=== PATIENT | male | born 1955 | race Caucasian/White ===

== ENCOUNTER → 2017-05-02 15:41 | Outpatient (CLI) | payer MEDICAID, SELFPAY ==
--- NOTE | 2017-05-02 15:47 | RAD_ITS ---
STUDY: X-RAY CHEST REASON FOR EXAM: Male, 61 years old. Left lower lobe rales TECHNIQUE: PA and lateral views of the chest. COMPARISON: 06/02/2015 FINDINGS: There is hyperinflation of the lungs consistent with chronic obstructive lung disease (COPD). Lungs are clear. There is no demonstrated pleural abnormality. Sternal cerclage wires and vascular clips are present from a prior sternotomy and coronary artery bypass graft procedure (CABG). Mild cardiomegaly. Normal mediastinum and juan. Normal visualized pulmonary arteries. Normal visualized aortic arch and descending thoracic aorta. Normal visualized thoracic spine. Normal visualized ribs, clavicles, and shoulders. There is no demonstrated abnormality of the visualized soft tissue structures of the upper abdomen. RAD/Chest PA and Lateral IMPRESSION: No acute findings Electronically Signed: Eitan Salinas DO at 16:13 EST Tel , Service support ,
[2017-05-02 18:33] LABS: Absolute Lymphocyte Count 2.21 X10^3/ul (0.83-4.51); Absolute Neutrophil Count 5.2 X10^3/uL (2.0-7.7); Basophil# 0.02 X10^3/uL; Basophil% 0.2 % (0-1); Eosinophil# 0.42 X10^3/uL; Eosinophils% 4.7 % (0-5); Hematocrit 43.5 % (40-54); Hemoglobin 14.4 g/dl (13.0-16.5); Lymphocyte # 2.21 X10^3/ul (4.0); Lymphocyte % 24.8 % (19-41); Mean Corp Hgb Conc 33.1 g/gl (32-36); Mean Corpuscular Hgb 31.4 pg (27.0-32.0); Mean Corpuscular Volume 94.8 fL (80-94); Mean Platelet Vol. 10.5 fl (6.2-12.0); Monocyte# 0.93 X10^3/uL; Monocyte% 10.4 % (0-10); Neutrophil # 5.22 X10^3/uL (2.7-7.7); Neutrophil % 58.7 % (47-70); Platelet Count 352 K/mm3 (150-450); RBC Distribution Width CV 13.6 % (11.6-14.6); RBC Distribution Width SD 44.6 fl (35.1-43.9); Red Blood Count 4.59 M/mm3 (4.6-6.2); White Blood Count 8.9 K/mm3 (4.4-11.0)
[2017-05-02 18:54] LABS: POSITIVE COUNT NO; POSITIVE DIFFERENTIAL NO; POSITIVE MORPHOLOGY NO
[2017-05-02 19:12] LABS: ALB/GLOB Ratio 0.9 RATIO (0.9-2.4); AST(SGOT) 18 U/L (15-37); Alanine Aminotransfer ALT/SGPT 36 U/L (16-61); Albumin, Serum 3.3 g/dL (3.2-5.0); Alkaline Phosphatase 92 U/L (45-117); BUN 20 mg/dL (7-18); Calcium,Total 8.3 mg/dL (8.5-10.1); Creatinine, Serum 0.95 mg/dL (0.70-1.30); EST Glomerular Filtration Rate 85 mL/min (>60); Est Glom Filt Rate - Afr Amer 102 mL/min (>60); Globulin 3.8 g/dL (2.2-4.2); Glucose 97 mg/dL (74-106); Protein, Total 7.1 g/dL (6.4-8.2); Sodium Level 140 mmol/L (136-145)
[2017-05-02 19:13] LABS: Anion Gap 6 (5-15); CRP < 2.90 mg/L (0.0-3.0); Chloride 103 mmol/L (98-107); LDH 226 U/L (87-241); Potassium 4.1 mmol/L (3.5-5.1)
== END ==
PROVIDERS: Family Provider Family Medicine; PCP Family Medicine; Visit Provider Family Medicine
DX: J18.1 Lobar pneumonia, unspecified organism (principal)
CPT/HCPCS: 36415; 71046; 80053; 83615; 85025; 86140

== ENCOUNTER → 2017-08-10 15:11 | Outpatient (CLI) | payer MEDICAID, SELFPAY ==
--- NOTE | 2017-08-10 15:14 | RAD_ITS ---
STUDY: X-RAY CHEST REASON FOR EXAM: Male, 62 years old. Rales TECHNIQUE: PA and lateral chest COMPARISON: 05/02/2017 FINDINGS: Median sternotomy. Cholecystectomy. Clear lungs. No convincing evidence of infiltrate, atelectasis, effusion or pneumothorax. Normal cardiomediastinal silhouette, juan and pleural margins. No acute osseous or upper abdominal process. Mild scoliosis. RAD/Chest PA and Lateral IMPRESSION: No acute cardiopulmonary process. Electronically Signed: Alex Bliss, at 15:40 EDT Tel , Service support ,
--- NOTE | 2017-08-10 15:14 | RAD_ITS ---
STUDY: X-RAY - ABDOMEN/PELVIS REASON FOR EXAM: Male, 62 years old. Diarrhea TECHNIQUE: KUB COMPARISON: None. FINDINGS: Scattered gas in the large bowel, unremarkable pattern. No significant stool burden. Minimal gas in the small bowel, unremarkable pattern. No evidence of free air. Cholecystectomy. Grossly normal size and position of the solid organs. Old wedge compression fracture of L1. Upper lumbar scoliosis. Stable. RAD/Abd Inc Decub and/or Erect IMPRESSION: No acute intra-abdominal process is evident. Electronically Signed: Alex Bliss, at 15:39 EDT Tel , Service support ,
== END ==
PROVIDERS: Family Provider Family Medicine; PCP Family Medicine; Visit Provider Family Medicine
DX: R09.89 Other specified symptoms and signs involving the circulatory and respiratory systems (principal); R19.7 Diarrhea, unspecified
CPT/HCPCS: 71046; 74019

== ENCOUNTER → 2018-04-06 17:08 | Outpatient (CLI) | payer MEDICAID, SELFPAY ==
[2016-12-27 20:55] VITALS: BMI 34.0
--- NOTE | 2018-04-06 17:12 | RAD_ITS ---
STUDY: X-RAY CHEST REASON FOR EXAM: Male, 62 years old. Rales in both lungs TECHNIQUE: 2 views COMPARISON: None. FINDINGS: The lungs are clear and expanded. There is no demonstrated pleural abnormality. Median sternotomy wires are in place Normal size heart. Normal mediastinum and juan. Normal visualized pulmonary arteries. Normal visualized aortic arch and descending thoracic aorta. 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 RAD/Chest PA and Lateral IMPRESSION: No acute findings in the lungs. 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
--- OUTSIDE RECORDS SUMMARY | 2018-06-11 12:16 | XMS RPT_ITS ---
:1955 Author Organization [facility] Care Team Providers Name Role Phone Emerson Jara Attending Unavailable Jara, Emerson Referring Unavailable Jara, Emerson Primary Care Unavailable Jara, Emerson Attending Unavailable Jara, Emerson Referring Unavailable Jara, Emerson Primary Care Unavailable Jara, Emerson Attending Unavailable Jara, Emerson Referring Unavailable Jara, Emerson Primary Care Unavailable PROBLEMS PROBLEMS DATE TYPE CONDITION / CODE ATTENDING STATUS SOURCE 08/10/2017 Unknown R19.7 - Diarrhea, Jara, Emerson Active [facility] unspecified / Community R19.7(ICD-10) Hospital Repository 08/10/2017 Unknown R09.89 - Other Jara, Emerson Active [facility] specified Community symptoms and Hospital signs involving Repository the circulatory and respiratory systems / R09.89(ICD-10) 05/02/2017 Unknown J18.1 - Lobar Jara, Emerson Active [facility] pneumonia, Community unspecified Hospital organism / Repository J18.1(ICD-10) PROCEDURES PROCEDURES No Procedure Records FoundRESULTS RESULTS CHEST PA AND LATERAL Observed: 04/06/2018 Status: F Source: [place] 5:12 PM [facility] Imaging Services [address] [place] [address] Chest PA and Lateral MR#: [id number] Acct: [id number] Name: YURI RANDALL Rep #: [id number] : 1955 M 62 From: Vinay Anguiano MD PCP: Emerson Jara MD Status: REG CLI Study: Chest PA and Lateral Date of Exam: 04/06/18 Exam# [id number] Ordering Dr: Emerson Jara MD STUDY: X-RAY CHEST REASON FOR EXAM: Male, 62 years old. Rales in both lungs TECHNIQUE: 2 views COMPARISON: None. FINDINGS: The lungs are clear and expanded. There is no demonstrated pleural abnormality. Median sternotomy wires are in place Normal size heart. Normal mediastinum and juan. Normal visualized pulmonary arteries. Normal visualized aortic arch and descending thoracic aorta. 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 RAD/Chest PA and Lateral IMPRESSION: No acute findings in the lungs. 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 CC: Emerson Jara MD Cadd Operator: Signed ABD INC DECUB Observed: 08/10/2017 Status: F Source: [place] AND/OR ERECT 3:14 PM [facility] REPOSITORY [facility] Imaging Services [address] [place] [address] Abd Inc Decub and/or Erect MR#: [id number] Acct: [id number] Name: PRAKASHYURI Hermelinda Rep #: [id number] : 1955 M 62 From: Alex Bliss MD PCP: Emerson Jara MD Status: REG CLI Study: Abd Inc Decub and/or Erect Date of Exam: 08/10/17 Exam# [id number] Ordering Dr: Emerson Jara MD STUDY: X-RAY - ABDOMEN/PELVIS REASON FOR EXAM: Male, 62 years old. Diarrhea TECHNIQUE: KUB COMPARISON: None. FINDINGS: Scattered gas in the large bowel, unremarkable pattern. No significant stool burden. Minimal gas in the small bowel, unremarkable pattern. No evidence of free air. Cholecystectomy. Grossly normal size and position of the solid organs. Old wedge compression fracture of L1. Upper lumbar scoliosis. Stable. RAD/Abd Inc Decub and/or Erect IMPRESSION: No acute intra-abdominal process is evident. Electronically Signed: Alex Bliss, at 15:39 EDT Tel , Service support , CC: Emerson Jara MD Cadd Operator: Signed CHEST PA AND LATERAL Observed: 08/10/2017 Status: F Source: [place] 3:14 PM [facility] REPOSITORY [facility] Imaging Services [address] [place] [address] Chest PA and Lateral MR#: [id number] Acct: [id number] Name: YURI RANDALL Rep #: [id number] : 1955 M 62 From: Alex Bliss MD PCP: Emerson Jara MD Status: REG CLI Study: Chest PA and Lateral Date of Exam: 08/10/17 Exam# [id number] Ordering Dr: Emerson Jara MD STUDY: X-RAY CHEST REASON FOR EXAM: Male, 62 years old. Rales TECHNIQUE: PA and lateral chest COMPARISON: 05/02/2017 FINDINGS: Median sternotomy. Cholecystectomy. Clear lungs. No convincing evidence of infiltrate, atelectasis, effusion or pneumothorax. Normal cardiomediastinal silhouette, juan and pleural margins. No acute osseous or upper abdominal process. Mild scoliosis. RAD/Chest PA and Lateral IMPRESSION: No acute cardiopulmonary process. Electronically Signed: Alex Bliss, at 15:40 EDT Tel , Service support , CC: Emerson Jara MD Cadd Operator: Signed CBC W/DIFF, AUTOMATED Collected: 05/02/2017 Status: F Source: [place] 3:49 PM [facility] REPOSITORY TYPE CODE TESTS RESULT OUT OF RANGE REFERENCE UNITS LAB L100.1000 4.4-11.0 K/mm3 Normal WBC 8.9 LAB L100.1200 4.6-6.2 M/mm3 Low RBC 4.59 LAB L100.1300 13.0-16.5 g/dl Normal HGB 14.4 LAB L100.1400 40-54 % Normal HCT 43.5 LAB L100.1500 80-94 fL High MCV 94.8 LAB L100.1600 27.0-32.0 pg Normal MCH 31.4 LAB L100.1700 32-36 g/gl Normal MCHC 33.1 LAB L100.1810 11.6-14.6 % Normal RDW CV 13.6 LAB L100.1820 35.1-43.9 fl High RDW SD 44.6 LAB L100.1900 150-450 K/mm3 Normal PLT 352 LAB L100.2000 6.2-12.0 fl Normal MPV 10.5 LAB L100.2100 47-70 % Normal NEUT% 58.7 LAB L100.2200 19-41 % Normal LY% 24.8 LAB L100.2300 0-10 % High MONO% 10.4 LAB L100.2400 0-5 % Normal EO% 4.7 LAB L100.2500 0-1 % Normal BASO% 0.2 LAB L100.2550 0.0-0.9 % High IM GRAN % 1.200 Result Comment: IG% - Immature Granulocytes (promyelocytes, myelocytes and metamyelocytes) > 1% indicates that a LEFT SHIFT is Present. LAB L100.2620 2.0-7.7 X10 3/uL Normal Absolute Neut 5.2 LAB L100.2720 0.83-4.51 X10 3/ul Normal Absolute Lymph 2.21 Performed By: #### L100.0100 #### [facility] [address] [place], [place], [address] COMPREHENSIVE METABOLIC Collected: 05/02/2017 Status: F Source: [place] 3:49 PM [facility] REPOSITORY Order Comment: Serial Specimen #1, #2 or #3? 1 TYPE CODE TESTS RESULT OUT OF RANGE REFERENCE UNITS LAB L501.0100 74-106 mg/dL Normal GLU 97 Result Comment: Please note revised GLUCOSE reference range effective 2017. LAB L501.1000 7-18 mg/dL High BUN 20 LAB L501.1100 0.70-1.30 mg/dL Normal CREAT,SERUM 0.95 Result Comment: The validity of the calculated GFR AND GFRAA in patients over 70 years has not been determined. Clinical correlation is essential. LAB L501.1110 >60 mL/min Normal EST GFR 85 Result Comment: Non- GFR Calc LAB L501.1115 >60 mL/min Normal EST GFR - AA 102 Result Comment: GFR Calc LAB L501.1300 10-20 RATIO High BUN/CRE 21.0 LAB L501.1500 6.4-8.2 g/dL T Normal PROT 7.1 LAB L501.1800 3.2-5.0 g/dL Normal ALB 3.3 LAB L501.1950 2.2-4.2 g/dL Normal GLOB 3.8 LAB L501.2000 0.9-2.4 RATIO Normal A/G 0.9 LAB L501.2200 8.5-10.1 mg/dL Low CA 8.3 LAB L501.4100 15-37 U/L Normal AST 18 LAB L501.4305 45-117 U/L Normal ALK P 92 LAB L501.4405 16-61 U/L Normal ALT 36 Result Comment: Please note revised ALT reference range effective 2017. LAB L501.4600 0.20-1.00 mg/dL Normal T BILI 0.30 LAB L501.5300 136-145 mmol/L Normal NA 140 LAB L501.5600 3.5-5.1 mmol/L Normal K 4.1 LAB L501.5900 98-107 mmol/L Normal CL 103 LAB L501.6100 21.0-32.0 mmol/L Normal CO2 31.0 LAB L501.6200 5-15 Normal GAP 6 Performed By: #### L500.4050, L501.6710, L504.2610 #### [facility] [address] [facility] [place], [address] CRP Collected: 05/02/2017 Status: F Source: [place] 3:49 PM [facility] REPOSITORY Order Comment: Serial Specimen #1, #2 or #3? 1 TYPE CODE TESTS RESULT OUT OF RANGE REFERENCE UNITS LAB L501.6710 0.0-3.0 mg/L Normal < 2.90 C-REACTIVE PROT Result Comment: C-Reactive Protein (CRP) provides useful information for the diagnosis, therapy and monitoring of inflammatory processes and associated diseases. For the evaluation of Relative Risk for Cardiovascular Disease, a High Sensitivity CRP (HSCRP) should be ordered. Performed By: #### L500.4050, L501.6710, L504.2610 #### [facility] [address] [facility] [place], [address] LDH Collected: 05/02/2017 Status: F Source: [place] 3:49 PM [facility] REPOSITORY Order Comment: Serial Specimen #1, #2 or #3? 1 TYPE CODE TESTS RESULT OUT OF RANGE REFERENCE UNITS LAB L504.2610 87-241 U/L Normal LDH 226 Performed By: #### L500.4050, L501.6710, L504.2610 #### [facility] [address] [place], [address] CHEST PA AND LATERAL Observed: 05/02/2017 Status: F Source: [place] 3:47 PM [facility] REPOSITORY [facility] Imaging Services [address] [place] [address] Chest PA and Lateral MR#: [id number] Acct: [id number] Name: YURI RANDALL Rep #: [id number] : 1955 M 61 From: Eitan Salinas DO PCP: Marek RATLIFF,Emerson Status: REG CLI Study: Chest PA and Lateral Date of Exam: 05/02/17 Exam# [id number] Ordering Dr: Emerson Jara MD STUDY: X-RAY CHEST REASON FOR EXAM: Male, 61 years old. Left lower lobe rales TECHNIQUE: PA and lateral views of the chest. COMPARISON: 06/02/2015 FINDINGS: There is hyperinflation of the lungs consistent with chronic obstructive lung disease (COPD). Lungs are clear. There is no demonstrated pleural abnormality. Sternal cerclage wires and vascular clips are present from a prior sternotomy and coronary artery bypass graft procedure (CABG). Mild cardiomegaly. Normal mediastinum and juan. Normal visualized pulmonary arteries. Normal visualized aortic arch and descending thoracic aorta. Normal visualized thoracic spine. Normal visualized ribs, clavicles, and shoulders. There is no demonstrated abnormality of the visualized soft tissue structures of the upper abdomen. RAD/Chest PA and Lateral IMPRESSION: No acute findings Electronically Signed: Eitan Salinas DO at 16:13 EST Tel , Service support , CC: Emerson Jara MD Cadd Operator: Signed ALLERGIES ALLERGIES DATE TYPE / CODE NAME / CODE REACTION SEVERITY SOURCE 06/02/2015 Drug venom-honey Anaphylaxis Unknown [facility] Allergy/4160 bee/[id number] Hospital 49416(SNOMED 698(RXNORM) Repository CT) ENCOUNTERS ENCOUNTERS ADMIT/DISCHARGE ACCOUNT ADMITTING ENCOUNTER LOCATION SOURCE NUMBER CLASS 04/06/2018 [id number] Ambulatory Madhuri Madhuri [address] [facility] ing:MTRAD Repository 08/10/2017 [id number] Ambulatory Madhuri Madhuri [address] [facility] ing:MTRAD Repository 05/02/2017 [id number] Ambulatory [place] [address] [facility] ing:MTRAD Repository PAYERS PAYERS ENCOUNTER GUARANTOR PAYER SUBSCRIBER SOURCE 04/06/2018 YURI [address] Insurance:CARESOURCEP WILSONDOB: [address] Number: [id number] [id number] Repository [address]Kpn: (234) Date:2018-04-06P O [phone] (HP) [address]ATTN: [place] [address]EI: 04/06/2018 Secondary NOT GIVENUNK Madhuri Insurance:SELF PAY [facility] Number: Effective Repository Date:2018-04-06 08/10/2017 Yuri L Primary Yuri L [id number] Insurance:CARESOEILEEN GarsiaB[facility] Number: [id number] [address]Pza: [id number] Repository Date:2017-08-10P O (HP) [address]ATTN: [place] [address]UV: 08/10/2017 Secondary NOT GIVENUNK [place] Insurance:SELF PAY [facility] Number: Effective Repository Date:2017-08-10 05/02/2017 Yuri L Primary Yuri L [place] [id number] Insurance:JIM GarsiaB: [facility] Number: [id number] [address]Jeb: [id number] Repository Date:2017-05-02 O (HP) [address]ATTN: [place] [address]JN: 05/02/2017 Secondary NOT GIVENUNK Madhuri Insurance:SELF PAY [facility] Number: Effective Repository Date:2017-05-02
== END ==
PROVIDERS: Family Provider Family Medicine; PCP Family Medicine; Referring Provider Family Medicine; Visit Provider Family Medicine
DX: R09.89 Other specified symptoms and signs involving the circulatory and respiratory systems (principal)
CPT/HCPCS: 71046

== ENCOUNTER 2018-07-12 18:21 | Emergency (ER) | payer MEDICAID, SELFPAY ==
[2018-07-12 18:23] VITALS: BP 169/100; PULSE 91; RESP 16; TEMP 36.9; O2SAT 97; BMI 33.5
[2018-07-12 18:36] LABS: Bedside Glucose 101 mg/dL (70-110)
--- NOTE | 2018-07-12 18:38 | EKG12_ITS ---
Test Reason : DIZZY Blood Pressure : / mmHG Vent. Rate : 090 BPM Atrial Rate : 090 BPM P-R Int : 154 ms QRS Dur : 086 ms QT Int : 368 ms P-R-T Axes : 065 085 058 degrees QTc Int : 450 ms Normal sinus rhythm Possible Left atrial enlargement Low voltage QRS Borderline ECG Confirmed by CARLOS RATLIFF, CORTEZ ([id number]), assistant film editor MATT SERRANO ([id number]) on 07/17/2018 10:55:09 AM Referred By: MR Confirmed By:CORTEZ GONZALEZ MD
--- NOTE | 2018-07-12 18:38 | CT_ITS ---
STUDY: CT BRAIN WITHOUT CONTRAST REASON FOR EXAM: Male, 63 years old. Altered mental status RADIATION DOSAGE (If Supplied By Facility): CTDIvol = ( 44.99 ) mGy, DLP = ( 779.24 ) mGycm TECHNIQUE: Transaxial CT imaging of the brain was performed without administration of intravenous contrast material. Individualized dose optimization techniques were used for this CT. COMPARISON: December 27, 2016 FINDINGS: Normal soft tissue structures. Normal calvarium. Moderate atrophy and periventricular white matter ischemic changes. There is old infarct in the right frontal parietal region.. Normal basal ganglia and thalami. Normal brainstem. Normal cerebellum. There is no intracranial hemorrhage. There are no findings of an acute ischemic infarction. Normal visualized paranasal sinuses. CT/Brain/Head without Contrast IMPRESSION: Moderate atrophy and periventricular white matter ischemic changes. 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 No evidence for acute bleed. If concern for acute infarct MRI recommended Electronically Signed: Eran Franz MD at 19:38 EDT , Service support ,
--- NOTE | 2018-07-12 18:38 | RAD_ITS ---
STUDY: X-RAY CHEST REASON FOR EXAM: Male, 63 years old. Cough and shortness of breath TECHNIQUE: AP portable COMPARISON: April 06, 2018. FINDINGS: There is focal infiltrate in the right lower lobe.. There is no demonstrated pleural abnormality. Heart is enlarged. Normal mediastinum and juan. Normal visualized pulmonary arteries. Normal visualized aortic arch and descending thoracic aorta. Postop change status post median sternotomy Normal visualized thoracic spine. Normal visualized ribs, clavicles, and shoulders. There is no demonstrated abnormality of the visualized soft tissue structures of the upper abdomen. RAD/Chest 1 View (Portable) IMPRESSION: Right lower lobe infiltrate possibly pneumonia. Clinical correlation recommended Electronically Signed: Eran Franz MD at 18:58 EDT , Service support ,
--- NOTE | 2018-07-12 18:39 | ED.RN ---
PT GIVES THIS RN VERBAL PERMISSION TO CONTACT BROTHER VINNIE REGARDING CARE. PT LIVES WITH HIS BROTHER CURRENTLY.
[2018-07-12 19:21] LABS: Absolute Lymphocyte Count 1.42 X10^3/ul (0.83-4.51); Absolute Neutrophil Count 6.6 X10^3/uL (2.0-7.7); Eosinophil# 0.22 X10^3/uL; Eosinophils% 2.4 % (0-5); Hematocrit 43.8 % (40-54); Hemoglobin 14.5 g/dl (13.0-16.5); Lymphocyte # 1.42 X10^3/ul (4.0); Lymphocyte % 15.6 % (19-41); Mean Corp Hgb Conc 33.1 g/gl (32-36); Mean Corpuscular Hgb 31.2 pg (27.0-32.0); Mean Corpuscular Volume 94.2 fL (80-94); Mean Platelet Vol. 10.2 fl (6.2-12.0); Monocyte# 0.86 X10^3/uL; Monocyte% 9.5 % (0-10); Neutrophil # 6.58 X10^3/uL (2.7-7.7); Neutrophil % 72.3 % (47-70); Platelet Count 299 K/mm3 (150-450); RBC Distribution Width CV 13.6 % (11.6-14.6); RBC Distribution Width SD 46.3 fl (35.1-43.9); Red Blood Count 4.65 M/mm3 (4.6-6.2); White Blood Count 9.1 K/mm3 (4.4-11.0)
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
[2018-07-12 19:27] LABS: Anion Gap 3 (5-15); BUN 19 mg/dL (7-18); BUN/Creat Ratio 20.5 RATIO (10-20); Calcium,Total 8.8 mg/dL (8.5-10.1); Chloride 109 mmol/L (98-107); Creatinine, Serum 0.93 mg/dL (0.70-1.30); EST Glomerular Filtration Rate 87 mL/min (>60); Est Glom Filt Rate - Afr Amer 105 mL/min (>60); Estimated Creatinine Clearance 66.31 ml/min; Glucose 103 mg/dL (74-106); Sodium Level 143 mmol/L (136-145)
[2018-07-12 19:28] LABS: POSITIVE COUNT NO; POSITIVE DIFFERENTIAL NO; POSITIVE MORPHOLOGY NO
[2018-07-12 19:41] LABS: Bacteria 0 SEEN /hpf (None Seen); Red Blood Cells-Urine 0 SEEN /hpf (0-5); Squamous Epithelial Cells - UA 0 SEEN /hpf (0-5)
[2018-07-12 19:54] LABS: Color, Urine Yellow (Yellow); Glucose, Dipstick Normal (Normal); Ketone-Dipstick Negative (Negative); Leukocyte Esterase-Dipstick 25 /ul (Negative); Nitrite-Dipstick Negative (Negative); Occult Blood-Urine Negative /ul (Negative); Protein-Dipstick 30 mg/dl (Negative); Specific Gravity, Urine 1.015 (1.002-1.030); Urine Bilirubin Dipstick Negative (Negative); Urine Clarity Clear (Clear); Urine Urobilinogen 1 mg/dl (Normal)
[2018-07-12 19:56] LABS: Mucous, Urine RARE /hpf (<or=2+); White Blood Cells 0-5 SEEN /hpf (0-5)
[2018-07-12 20:00] LABS: Amphetamine Urine VISTA NEGATIVE (<1000 ng/mL); Barbiturate Urine VISTA NEGATIVE (< 200 ng/mL); Benzodiazepine Urine VISTA NEGATIVE (< 200 ng/mL); Cocaine Urine VISTA NEGATIVE (< 300 ng/mL); Ecstacy Urine VISTA NEGATIVE (< 500 ng/mL); Methadone Urine VISTA NEGATIVE (< 300 ng/mL); PCP Urine VISTA NEGATIVE (< 25 ng/mL); THC Urine VISTA NEGATIVE (< 50 ng/mL); Vista UDS pH Range 6
[2018-07-12 20:28] LABS: Alcohol, Blood (Medical)-Serum < 3.0 mg/dL
[2018-07-12 20:42] VITALS: BP 133/84; PULSE 97; RESP 18; O2SAT 98
--- NOTE | 2018-07-12 20:46 | ED.RN ---
I CALLED THE [facility]SELING [facility] AND NOTIFIED THE DATA CENTER ARCHITECT THAT THIS PT NEEDS TO BE EVALUATED.
--- NOTE | 2018-07-12 20:50 | ED.RN ---
[facility] CALLED BACK, AISHWARYA VALET PARKER WILL BE COMING IN ABOUT 45 MIN.
[2018-07-12] MEDS: Donepezil HCl 10 MG Tablet PO (21:06)
[2018-07-12] MEDS: levETIRAcetam 500 MG Tablet PO (21:06)
[2018-07-12 22:31] VITALS: BP 133/84; PULSE 83; O2SAT 97
--- NOTE | 2018-07-12 22:33 | ED.RN ---
PT IS GETTING MORE RESTLESS. FAMILY AT BEDSIDE HAVE TROUBLE REDIRECTING THE PATIENT WHEN HE GETS RESTLESS. PT FOLLOWS DIRECTIONS AND IS REDIRECTED BY THIS NURSE TO LAY BACK IN BED AND LEAVE HOSPITAL GOWN ON. PLACED PATIENTS BELONGINGS IN BLACK BIN. PT HAS NO FURTHER NEEDS AT THIS TIME.
[2018-07-13] VITALS (13 sets, daily range): BP systolic 111–152; BP diastolic 61–109; PULSE 68–104; RESP 14–26; O2SAT 94–100
[2018-07-13] MEDS: Ziprasidone IM 20 MG/ML VIAL IM (00:07)
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
--- NOTE | 2018-07-13 06:08 | ED.RN ---
[facility] called [facility] for arrival [phone]
--- NOTE | 2018-07-13 06:23 | ED.RN ---
BREAKFAST AND THE MORNING MEDICATIONS WE HAVE AVAILABLE WAS ORDERED FOR THE PATIENT.
--- NOTE | 2018-07-13 06:45 | NURSING ---
[facility] called. they had a crew call off, so no ride until 1 pm
--- NOTE | 2018-07-13 07:20 | NURSING ---
SHE CALLED [phone] [facility], NOTHING AVAILABLE 0705 [facility], NOTHING [phone] [facility], NOTHING 0708 [facility], NOTHING 0716 [facility], NOTHING
--- NOTE | 2018-07-13 11:03 | NURSING ---
[facility] CALLED, THEY WILL BE HERE ABOUT HALF HOUR.
[2018-07-13] MEDS: Ziprasidone HCl 20 MG Capsule PO (11:05)
[2018-07-13] MEDS: Donepezil HCl 10 MG Tablet PO (11:05)
[2018-07-13] MEDS: Memantine Hydrochloride 10 MG Tablet PO (11:05)
[2018-07-13] MEDS: levETIRAcetam 500 MG Tablet PO (11:05)
[2018-07-13] MEDS: Losartan Potassium 25 MG Tablet PO (11:05)
[2018-07-13] MEDS: Clopidogrel Bisulfate 75 MG Tablet PO (11:05)
== END 2018-07-13 12:01 ==
PROVIDERS: Emergency Provider Emergency Medicine; Family Provider Family Medicine; PCP Family Medicine
DX: F03.91 Unspecified dementia, unspecified severity, with behavioral disturbance (principal); Z91.14 Patient's other noncompliance with medication regimen; Z87.891 Personal history of nicotine dependence
CPT/HCPCS: 70450; 71045; 80048; 80307; 80320; 81001; 82962; 84484; 85025; 93005; 96372; 99285; A4216; G0480; J3486

== ENCOUNTER 2018-11-28 16:01 | Observation (INO) | payer MEDICAID, SELFPAY ==
[2018-11-28 16:02] VITALS: BP 115/70; PULSE 95; RESP 16; TEMP 36.8; O2SAT 97; BMI 34.3
--- NOTE | 2018-11-28 17:06 | NURSING ---
CALLED LAURI VILLANUEVA FOR RECORDS FROM YESTERDAY AT [place]. HAD TO LEAVE MESSAGE ON MEDICAL RECORDS MACHINE
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
--- NOTE | 2018-11-28 17:52 | NURSING ---
CALLED [facility], TALKED TO MEDICAL RECORDS. THEY ARE TRYING TO PULL UP RECORDS FROM ANOTHER HOSPITAL
--- NOTE | 2018-11-28 18:17 | NURSING ---
RECEIVED CHART FROM [facility], FROM [facility] YESTERDAY
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
[2018-11-28 18:48] VITALS: BP 118/78; PULSE 87; RESP 16; O2SAT 98
--- NOTE | 2018-11-28 19:05 | PCM.HP.STD ---
Problem List (1) Falls frequently Status: Acute (2) Closed fracture of right proximal humerus Status: Acute Qualifiers: Encounter type: initial encounter Fracture morphology: unspecified fracture morphology Qualified Code(s): S42.201A - Unspecified fracture of upper end of right humerus, initial encounter for closed fracture (3) Dementia Status: Chronic Qualifiers: Dementia type: unspecified type (4) HTN (hypertension) Status: Chronic Qualifiers: Hypertension type: essential hypertension Qualified Code(s): I10 - Essential (primary) hypertension (5) COPD (chronic obstructive pulmonary disease) Status: Chronic Qualifiers: COPD type: unspecified COPD Qualified Code(s): J44.9 - Chronic obstructive pulmonary disease, unspecified (6) Obesity (BMI 30.0-34.9) Status: Chronic (7) Seizure Status: Chronic (8) Stroke Status: Chronic Qualifiers: CVA mechanism: unspecified Qualified Code(s): I63.9 - Cerebral infarction, unspecified History of Present Illness Date of Admission: 11/28/18 Chief Complaint: Fall, RUE pain, Unable to care for self The patient is a 63 y/o M w/ PMHx: ? Valvular heart disease, Hx CVA, HTN, Obesity, Anxiety and Depression/Bipolar disorder, Seizure disorder, Dementia unclear type with unclear behavioral disturbance history, COPD, Former Tobacco use who presents to the [facility] ED on 11/28/18 with history of recent fall the week prior resulting in a broken shoulder (R proximal humerus fracture) with evaluation at OSH ED with follow-up with PCP and initiation at that time for SNF placement as patient unable to care for self, falling, poor intake, refusing to shower, living in mobile home with his brother and [id number] unable to care for him and some concern that his family has been neglecting to assist in his care. Upon evaluation of patient he notes ongoing discomfort to his right upper extremity and I remind him that this was recently broken. He does not recall his recent fall. This is common for him. Work-up in the ED included T 98.2, heart rate 95, BP 115/70, respiratory rate 16, 97% on room air, no labs or imaging was obtained, nor any medications administered. At OSH ED CT head and neck were unremarkable from [facility] evidence [facility] and chronic changes, plain film of the spine with compression fracture T1-T2 region but unclear age otherwise unremarkable, labs stable per report aside hypomagnesium with pending admission CBC, CMP, mag and phos. Past Medical History Past Medical History (Chronic Problems): Chronic Problems Dementia (Chronic) HTN (hypertension) (Chronic) COPD (chronic obstructive pulmonary disease) (Chronic) Obesity (BMI 30.0-34.9) (Chronic) Stroke (Chronic) Seizure (Chronic) Allergies venom-honey bee [bee venom (honey bee)] Allergy (Verified 11/28/18 16:04) Anaphylaxis Home Medications: Ambulatory Orders Medication Instructions Recorded Calcium Carbonate 600 mg PO DAILY 07/12/18 Chlorpheniramine Maleate 4 mg PO PRN PRN 07/12/18 Chlorpheniramine Maleate 4 mg PO QHS 07/12/18 Clopidogrel Bisulfate [Plavix] 75 mg PO DAILY 07/12/18 Donepezil HCl [Aricept] 10 mg PO DAILY 07/12/18 Duloxetine HCl 30 mg PO BID 07/12/18 Levetiracetam 500 mg PO BID 07/12/18 Losartan Potassium 25 mg PO DAILY 07/12/18 Memantine HCl 10 mg PO DAILY 07/12/18 Mometasone/Formoterol [Dulera 200 2 puff IH BID 07/12/18 Mcg/5 Mcg Inhaler] Ziprasidone HCl 20 mg PO DAILY 07/12/18 Surgical History: - - Patient and family poor historians, note no CABG but note 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 Psychiatric History: Anxiety, Bipolar, Depression, Prior suicide attempt Lives: With Family - Patient lives with his brother who is his healthcare power of deputy prosecuting attorney and his [id number]. Smoking Status: Never smoker Tobacco Use: Secondhand - Patient with notable secondhand tobacco smoke exposure Alcohol: None Drugs: None - *Family History Maternal History Items: Heart Disease, Hypertension Paternal History Items: High Cholesterol, Heart Disease Sibling History Items: Heart Disease, Stroke Review of Systems Constitutional: Reports: Anorexia, Malaise, Weakness, Fatigue. Denies: Chills, Fever, Weight Change HEENT: Denies: Head Aches, Sinus Congestion, Sinus Drainage Cardiovascular: Denies: Chest Pain, Palpitations Respiratory: Denies: Cough, Shortness of breath at rest, Sputum production Gastrointestinal: Denies: Abdominal Pain, Nausea, Vomiting Genitourinary: Denies: Dysuria Musculoskeletal: Reports: Arm Pain, Joint Pain. Denies: Joint Tenderness Skin: Denies: Rash, Wounds Neurological: Reports: Confusion. Denies: Focal weakness, Numbness, Tingling Psychiatric: Reports: Anxiety, Depression. Denies: Homicidal Ideations, Suicidal Ideations Hematologic/ Lymphatic: Reports: Anemia. Denies: Easy Bruising, Easy Bleeding VTE Information - Inpt Only VTE Present on Admission: No VTE Mechan Device Prophylaxis: SCD's VTE Pharm Prophylaxis ordered?: Yes Patient Problems: Active and Suspected Problems History of dementia (Acute) History of coronary artery disease (Acute) Falls frequently (Acute) Closed fracture of right proximal humerus (Acute) Dementia (Acute) History of stroke (Acute) History of seizures (Acute) Subjective: Seated upright in the ED bed, fatigued appearing, no acute distress, notes mild discomfort to the right upper extremity otherwise no complaints. Objective: Physical Examination: General: awake, alert, to to self, place and some recent events, patient is severely demented at baseline, remains cooperative, seated upright in bed in no apparent distress. Skin: normal color, turgor, no icterus, cyanosis. HEENT: AT/NC, EOMI, PERRLA, dry MM, notable bilateral yellow and green eye discharge, no scleral injection evident, no carotid bruits or JVD noted. Lungs: CTA bilaterally, moderate effort, moderate decrease BL bases, no rales, ronchi or wheezing. Heart: Regular rate and rhythm; no gallop, rub audible, SM. Abdomen: soft, obese, NTTP, ND, normal BS, no HSM. Extremities: no cyanosis, clubbing, status post fall with right upper extremity humeral fracture, sling present, able to move fingers, distal pulses intact. Neurological: patient awake, alert, oriented as noted; cognitive function severely decreased baseline, family notes currently intact, severe dementia; pupils equally reactive to light and accomodation; cranial nerves II-XII grossly normal, moving all 4 extremities although avoided any market movement of the right upper extremity given recent fall with right humeral fracture, arm in sling, strength moderately to severely global decreased. Psychiatric: affect appears flat, fatigued, no acute evidence of depressive or anxiety feelings. - Physical Exam Vital Signs Temp Pulse Resp BP Pulse Ox 98.2 F 87 16 118/78 98 11/28/18 16:02 11/28/18 18:48 11/28/18 18:48 11/28/18 18:48 11/28/18 18:48 Oxygen Delivery Method Room Air Weight: 200 lb Body Mass Index (BMI) 34.3 Finger Stick Blood Glucose 122 Assessment/Plan All Active Problems History of dementia (Acute) History of coronary artery disease (Acute) Falls frequently (Acute) Closed fracture of right proximal humerus (Acute) Dementia (Acute) History of stroke (Acute) History of seizures (Acute) The patient is a 63 y/o M w/ PMHx: ? Valvular heart disease, Hx CVA, HTN, Obesity, Anxiety and Depression/Bipolar disorder, Seizure disorder, Dementia unclear type with unclear behavioral disturbance history, COPD, Former Tobacco use who presents to the [facility] ED on 11/28/18 with history of recent fall the week prior resulting in a broken shoulder (R proximal humerus fracture) with evaluation at OSH ED with follow-up with PCP and initiation at that time for SNF placement with inability to care for himself and concern for his home environment safety. 1. Mechanical fall with right upper extremity proximal humeral fracture: Unclear timeline of fall, notable dementia which complicates presentation, outside hospital ED work-up as noted and records obtained, will admit to medical surgical floor, case management consulted, will consult PT, OT, maintain on fall precautions, continue sling to right upper extremity, nonweightbearing to right upper extremity, PRN pain regimen with plan to gently hydrate overnight. Patient is unsafe to return to his home environment as concern for his welfare, potentially not being well cared for and unable to safely care for himself. 2. Failure to thrive, adult: Patient upon arrival has evidently not showered in several days, disheveled, foul-smelling despite living with his family in close quarters, case management in the ED aware of presentation and intention for involvement of Adult Protective Services. 3. Dementia unclear type with unclear behavioral disturbance history: We will continue home Aricept and memantine regimen, fall precautions, PT, OT, case management consulted for likely SNF placement, complicates presentation. 4. Anxiety and depression/bipolar disorder: We will continue home ziprasidone, duloxetine regimen. 5. Chronic COPD: History of notable secondhand smoke from discussion with family. Hold home inhalers, and interim transition to ATC duonebs, PRN albuterol, HOB, IS parameters. 6. Hypertension: Continue home regimen including losartan, PRN hydralazine. 7. Seizure disorder: We will continue home Keppra regimen. 8. Hx CVA: Noted prior on CT imaging w/ old infarcts in the right middle cerebral artery distribution as well as in the lateral left frontal lobe during seizure presentation evaluation at that time (2015), continue plavix, not on statin, BP regimen. 9. Valvular heart disease: Family and patient poor historian however noting MVR history. No echocardiogram noted. 10. DVT prophylaxis: SCDs, lovenox. 11. CODE status: Patient brother present and is healthcare power of deputy prosecuting attorney. Living will is in place. Discussed CODE status at length including difference between FULL code, DNR-CCA and DNR-CC status. Following discussions about the differences in these status, requested Full Code status. Advanced Care Planning Face to Face Time: 16 minutes. Code Visit OBSV E&M: 22912 Initial observation care L3 Procedures: 52585 Advncd Care Plan 30 Min
[2018-11-28 19:54] VITALS: BMI 32.3
[2018-11-28 19:55] VITALS: BP 132/52; PULSE 79; RESP 24; TEMP 36.9; O2SAT 99
[2018-11-28 20:06] VITALS: BMI 32.4
[2018-11-28 20:26] LABS: Absolute Lymphocyte Count 1.29 X10^3/uL (0.83-4.51); Absolute Neutrophil Count 6.9 X10^3/uL (2.0-7.7); Basophil# 0.01 X10^3/uL; Basophil% 0.1 % (0-1); Eosinophil# 0.41 X10^3/uL; Eosinophils% 4.2 % (0-5); Hematocrit 35.1 % (40-54); Hemoglobin 11.2 g/dL (13.0-16.5); Lymphocyte # 1.29 X10^3/ul (4.0); Lymphocyte % 13.1 % (19-41); Mean Corp Hgb Conc 31.9 g/dL (32-36); Mean Corpuscular Hgb 30.1 pg (27.0-32.0); Mean Corpuscular Volume 94.4 fL (80-94); Mean Platelet Vol. 10.7 fl (6.2-12.0); Monocyte% 12.2 % (0-10); NRBC Flagged by Analyzer 0 % (0-5); Neutrophil # 6.89 X10^3/uL (2.7-7.7); Neutrophil % 70.2 % (47-70); Platelet Count 221 K/mm3 (150-450); RBC Distribution Width CV 13.1 % (11.6-14.6); Red Blood Count 3.72 M/mm3 (4.6-6.2); White Blood Count 9.8 K/mm3 (4.4-11.0)
[2018-11-28 20:37] LABS: ALB/GLOB Ratio 0.8 RATIO (0.9-2.4); AST(SGOT) 25 U/L (15-37); Alanine Aminotransfer ALT/SGPT 28 U/L (16-61); Albumin, Serum 3.1 g/dL (3.2-5.0); Alkaline Phosphatase 86 U/L (45-117); Anion Gap 4 (5-15); BUN 14 mg/dL (7-18); BUN/Creat Ratio 19.4 RATIO (10-20); Calcium,Total 8.3 mg/dL (8.5-10.1); Chloride 105 mmol/L (98-107); Creatinine, Serum 0.72 mg/dL (0.70-1.30); EST Glomerular Filtration Rate 116 mL/min (>60); Est Glom Filt Rate - Afr Amer 140 mL/min (>60); Estimated Creatinine Clearance 85.65 ml/min; Globulin 4.1 g/dL (2.2-4.2); Glucose 95 mg/dL (74-106); Magnesium 1.8 mg/dL (1.6-2.6); Phosphorus 2.9 mg/dL (2.5-4.9); Potassium 3.5 mmol/L (3.5-5.1); Protein, Total 7.2 g/dL (6.4-8.2); Sodium Level 138 mmol/L (136-145)
[2018-11-28 21:06] VITALS: O2SAT 96
[2018-11-28] MEDS: DULoxetine Hcl 30 MG Capsule PO (22:47)
[2018-11-28] MEDS: DiphenhydrAMINE 25 MG Capsule PO (22:47)
[2018-11-28] MEDS: Erythromycin Base 1 OPTH.TUBE 1 APPLIC EACH EYE (22:48)
[2018-11-28] MEDS: levETIRAcetam 500 MG Tablet PO (22:49)
[2018-11-28] MEDS: MELATONIN 3 MG TABLET PO (22:49)
[2018-11-28] MEDS: 0.9% NaCl Peripheral Flush Adult/Peds IV (23:12)
[2018-11-28] MEDS: 0.9% Normal Saline 1,000 ML 100 ML IV (23:13)
[2018-11-29] VITALS (10 sets, daily range): BP systolic 129–143; BP diastolic 70–92; PULSE 89–108; RESP 18–22; TEMP 37.1–37.9; O2SAT 92–100
[2018-11-29] MEDS: Albuterol 2.5 MG/3 ML VIAL.NEB. INHALATION ×3 (04:07→19:25)
[2018-11-29 05:38] LABS: Absolute Lymphocyte Count 1.14 X10^3/uL (0.83-4.51); Absolute Neutrophil Count 6.9 X10^3/uL (2.0-7.7); Basophil# 0.01 X10^3/uL; Basophil% 0.1 % (0-1); Eosinophil# 0.33 X10^3/uL; Eosinophils% 3.5 % (0-5); Hematocrit 32.5 % (40-54); Hemoglobin 10.5 g/dL (13.0-16.5); Lymphocyte # 1.14 X10^3/ul (4.0); Lymphocyte % 12.2 % (19-41); Mean Corp Hgb Conc 32.3 g/dL (32-36); Mean Corpuscular Hgb 30.4 pg (27.0-32.0); Mean Corpuscular Volume 94.2 fL (80-94); Mean Platelet Vol. 11.1 fl (6.2-12.0); Monocyte# 0.98 X10^3/uL; Monocyte% 10.5 % (0-10); NRBC Flagged by Analyzer 0 % (0-5); Neutrophil # 6.87 X10^3/uL (2.7-7.7); Neutrophil % 73.4 % (47-70); Platelet Count 186 K/mm3 (150-450); RBC Distribution Width CV 13.1 % (11.6-14.6); RBC Distribution Width SD 44.7 fl (35.1-43.9); Red Blood Count 3.45 M/mm3 (4.6-6.2); White Blood Count 9.4 K/mm3 (4.4-11.0)
[2018-11-29] MEDS: Enoxaparin 40 MG/0.4 ML Syringe SC (05:40)
[2018-11-29 06:02] LABS: Anion Gap 7 (5-15); BUN 11 mg/dL (7-18); BUN/Creat Ratio 17.9 RATIO (10-20); Calcium,Total 7.9 mg/dL (8.5-10.1); Chloride 109 mmol/L (98-107); Creatinine, Serum 0.62 mg/dL (0.70-1.30); EST Glomerular Filtration Rate 139 mL/min (>60); Est Glom Filt Rate - Afr Amer 169 mL/min (>60); Estimated Creatinine Clearance 99.46 ml/min; Glucose 108 mg/dL (74-106); Potassium 3.6 mmol/L (3.5-5.1); Sodium Level 141 mmol/L (136-145)
--- NOTE | 2018-11-29 09:43 | PN_ITS ---
Patient Problems: Active and Suspected Problems History of dementia (Acute) History of coronary artery disease (Acute) Falls frequently (Acute) Closed fracture of right proximal humerus (Acute) Dementia (Acute) History of stroke (Acute) History of seizures (Acute) Subjective: Patient seen and examined. Was admitted on account of mechanical fall. He had fallen the week prior and sustained a right upper humeral fracture. Patient had been unable to care for himself at home so he was brought to the ED. Patient is a bit confused which appears to be his baseline due to underlying dementia. He was comfortably eating breakfast and had no complaints. Review of systems otherwise negative. Vitals/I&O's: Vital Signs Temp Pulse Resp BP Pulse Ox 98.8 F 104 H 18 143/92 H 96 11/29/18 07:55 11/29/18 07:55 11/29/18 07:55 11/29/18 07:55 11/29/18 07:55 Oxygen Delivery Method Room Air Weight: 188 lb 11.451 oz Body Mass Index (BMI) 32.3 Finger Stick Blood Glucose 122 Intake and Output for Last 24 Hours 11/27/18 11/28/18 11/29/18 23:59 23:59 23:59 Intake Total 1168.33 / 1168.33 Balance 1168.33 / 1168.33 General: Alert, Cooperative, No apparent distress, Confused HEENT: Atraumatic, PERRLA, EOMI, Normocephalic Oral: Moist Mucosa Neck: Supple, No JVD, Negative Carotid Bruits Lungs: Clear to auscultation, Normal air movement, No rhonchi, No wheeze Cardiovascular: Regular rate, Regular Rhythm, Normal S1, Normal S2, No murmurs Abdomen: Bowel Sounds Present, Soft, Non Tender, Non-Distended, No Hepato- splenomegaly Extremities: No edema, Capillary Refill Less than 3 Seconds Skin: No rashes, No breakdown Musculoskeletal: - - RUE in sling Lymphatic: No Cervical, Supraclavicular, or Inguinal Adenopathy Neurological: Cranial nerves II-XII grossly intact, Neuro grossly intact Psych/Mental Status: Normal Affect, Appropriate Laboratory Results 11/28/18 20:12: WBC 9.8, RBC 3.72 L, Hgb 11.2 L, Hct 35.1 L, MCV 94.4 H, MCH 30.1, MCHC 31.9 L, RDW Std Deviation 45.0 H, RDW Coeff of Martine 13.1, Plt Count 221, MPV 10.7, Immature Gran % (Auto) 0.200, Neut % (Auto) 70.2 H, Lymph % (Auto) 13.1 L, Wilbarger % (Auto) 12.2 H, Eos % (Auto) 4.2, Baso % (Auto) 0.1, Absolute Neuts (auto) 6.9, Absolute Lymphs (auto) 1.29, Nucleated RBC % 0 11/28/18 20:12: Sodium 138, Potassium 3.5, Chloride 105, Carbon Dioxide 29.0, Anion Gap 4 L, BUN 14, Creatinine 0.72, Estim Creat Clear Calc 85.65, Est GFR (MDRD) Af Amer 140, Est GFR (MDRD) Non-Af 116, BUN/Creatinine Ratio 19.4, Glucose 95, Calcium 8.3 L, Phosphorus 2.9, Magnesium 1.8, Total Bilirubin 0.40, AST 25, ALT 28, Alkaline Phosphatase 86, Total Protein 7.2, Albumin 3.1 L, Globulin 4.1, Albumin/Globulin Ratio 0.8 L 11/29/18 05:10: WBC 9.4, RBC 3.45 L, Hgb 10.5 L, Hct 32.5 L, MCV 94.2 H, MCH 30.4, MCHC 32.3, RDW Std Deviation 44.7 H, RDW Coeff of Martine 13.1, Plt Count 186, MPV 11.1, Immature Gran % (Auto) 0.300, Neut % (Auto) 73.4 H, Lymph % (Auto) 12.2 L, Wilbarger % (Auto) 10.5 H, Eos % (Auto) 3.5, Baso % (Auto) 0.1, Absolute Neuts (auto) 6.9, Absolute Lymphs (auto) 1.14, Nucleated RBC % 0 11/29/18 05:10: Sodium 141, Potassium 3.6, Chloride 109 H, Carbon Dioxide 25.0, Anion Gap 7, BUN 11, Creatinine 0.62 L, Estim Creat Clear Calc 99.46, Est GFR (MDRD) Af Amer 169, Est GFR (MDRD) Non-Af 139, BUN/Creatinine Ratio 17.9, G lucose 108 H, Calcium 7.9 L Current Medications Acetaminophen (Tylenol) 650 mg PO Q6H PRN PRN PRN Reason: Non-cardiac pain (mod-severe) Hydrocodone Bitart/Acetaminophen (Mershon 5mg-325mg) 1 - 2 tablet PO Q6H PRN PRN PRN Reason: MOD-SEVERE PAIN (4-12/28) Al Hydroxide/Mg Hydroxide (Mylanta Ii) 15 - 30 ml PO Q4H PRN PRN PRN Reason: INDIGESTION Albuterol Sulfate (Ventolin Aerosols) 2.5 mg INHALATION Q2H PRN PRN PRN Reason: dyspnea, wheezing Last Admin: 11/29/18 04:07 Dose: 2.5 mg Documented by: Clopidogrel Bisulfate (Plavix) 75 mg PO DAILY [facility] Dextrose (D50w Syringe) 0 gm IV X1 PRN; Protocol PRN Reason: Hypoglycemia Diphenhydramine HCl (Benadryl) 25 mg PO QHS [facility] Last Admin: 11/28/18 22:47 Dose: 25 mg Documented by: Donepezil HCl (Aricept) 10 mg PO DAILY [facility] Duloxetine HCl (Cymbalta) 30 mg PO BID [facility] Last Admin: 11/28/18 22:47 Dose: 30 mg Documented by: Enoxaparin Sodium (Lovenox) 40 mg SC DAILY@0600 [facility] Last Admin: 11/29/18 05:40 Dose: 40 mg Documented by: Erythromycin () 1 applic EACH EYE 4X/DAY [facility] Last Admin: 11/28/18 22:48 Dose: 1 applicatio Documented by: Glucagon () 1 mg IM .X1 PRN PRN Reason: Hypoglycemia Hydralazine HCl (Apresoline Iv) 10 mg IV Q4H PRN PRN PRN Reason: SBP > 160 Sodium Chloride () 1,000 mls @ 100 mls/hr IV .Q10H [facility] Last Infusion: 11/29/18 06:42 Dose: 100 mls/hr Documented by: Sodium Chloride () 250 mls @ 15 mls/hr IV .[id number] PRN PRN Reason: SALINE FLUSH Levetiracetam (Keppra Tablet) 500 mg PO BID [facility] Last Admin: 11/28/18 22:49 Dose: 500 mg Documented by: Losartan Potassium (Cozaar) 25 mg PO DAILY [facility] Magnesium Hydroxide (Milk Of Magnesia) 30 ml PO DAILY PRN PRN Reason: Constipation Melatonin (Melatonin) 3 mg PO QHS [facility] Last Admin: 11/28/18 22:49 Dose: 3 mg Documented by: Memantine (Namenda) 10 mg PO DAILY [facility] Morphine Sulfate () 1 - 2 mg IV Q4H PRN PRN PRN Reason: PAIN Nitroglycerin (Nitrostat) 0.4 mg SUBLINGUAL Q5M PRN PRN Reason: CARDIAC/CHEST PAIN Nutritional Formula (Lactose Free) (Ensure Enlive) 120 ml PO 4X/DAY [facility] Ondansetron HCl (Zofran) 4 mg IV Q8H PRN PRN PRN Reason: NAUSEA/VOMITING Psyllium Hydrophilic Mucilloid (Metamucil) 1 packet PO DAILY PRN PRN PRN Reason: Constipation Senna/Docusate Sodium (Senokot-S, Kristina-Colace) 2 tablet PO BID PRN PRN PRN Reason: Constipation Sodium Chloride () 10 - 40 ml IV UD PRN PRN Reason: SALINE FLUSH Last Admin: 11/28/18 23:12 Dose: 10 ml Documented by: Ziprasidone (Geodon) 20 mg PO DAILY@1700 [facility] Medical Necessity - Tobacco Use Smoking Status: Former smoker Tobacco Use: Secondhand Assessment/Plan All Active Problems History of dementia (Acute) History of coronary artery disease (Acute) Falls frequently (Acute) Closed fracture of right proximal humerus (Acute) Dementia (Acute) History of stroke (Acute) History of seizures (Acute) 1. Right upper humeral fracture due to mechanical fall * sustained fracture ~ 1 week ago * RUE in sling. * PT/OT consult * fall precautions * was seen at [facility] ED and conservative management was advocated * 2. Debility due to dementia and mechanical fall * as under 1. PT/OT consult * 3. Dementia with behavioural disturbance * on aricept and memantine * fall precautions * PT/OT consult * * 4. COPD: on duoneb inhalers. 5. Anxiety, depression and bipolar disorder * on ziprasidone and duloxetine * 6. Seizure disorder: on Keppra 7. History of CVA: stable. ON plavix. 8. History of valvular heart disease: ? mitral valve prolapse. Stable DVT prophylaxis: lovenox Disposition: awaiting placement Code Visit OBSV E&M: 81784 Subsequent observation care L2
--- NOTE | 2018-11-29 10:19 | CASEMGMT ---
Social Work Note SW asked RN to update this worker when pt's family arrives. SW to continue to follow. Hannah Lam BLANKET INSPECTOR, SIDER
[2018-11-29] MEDS: 0.9% Normal Saline 1,000 ML 100 ML IV ×2 (10:23→20:25)
[2018-11-29] MEDS: DULoxetine Hcl 30 MG Capsule PO ×2 (10:24→22:06)
[2018-11-29] MEDS: Donepezil HCl 10 MG Tablet PO (10:24)
[2018-11-29] MEDS: Losartan Potassium 25 MG Tablet PO (10:24)
[2018-11-29] MEDS: Clopidogrel Bisulfate 75 MG Tablet PO (10:24)
[2018-11-29] MEDS: levETIRAcetam 500 MG Tablet PO ×2 (10:25→22:06)
[2018-11-29] MEDS: Erythromycin Base 1 OPTH.TUBE 1 APPLIC EACH EYE ×3 (10:25→21:55)
[2018-11-29] MEDS: Memantine Hydrochloride 10 MG Tablet PO ×2 (10:57→22:06)
[2018-11-29] MEDS: Calcium Carbonate 500 MG Tablet PO (10:57)
--- NOTE | 2018-11-29 12:12 | CASEMGMT ---
[employer] is scanned in to the summary tab of the e-chart, pt's brother Marino is listed as POA. The POA form indicates that a living will was not completed at that time. BRYCE Anthony
--- NOTE | 2018-11-29 13:21 | CASEMGMT ---
Social Work Note Pt's family still not at [facility]. SW placed a call to pt's brother Marino who is HCPOA and left a message to return this worker's phone call so this worker can discuss discharge plans. SW waiting for call back. Hannah Lam FARM MARKETER, CORPORATE [employer]
[2018-11-29] MEDS: Acetaminophen 325 MG Tablet 650 MG PO (16:25)
[2018-11-29] MEDS: Ziprasidone HCl 20 MG Capsule PO (17:55)
[2018-11-29] MEDS: Budesonide Respules 0.5 MG/2 ML AMPUL.NEB. INHALATION (19:25)
[2018-11-29] MEDS: DiphenhydrAMINE 25 MG Capsule PO (21:56)
[2018-11-29] MEDS: Citalopram 20 MG Tablet PO (22:06)
[2018-11-29] MEDS: OLANZapine 10 MG Tablet PO (22:06)
[2018-11-29] MEDS: MELATONIN 3 MG TABLET PO (22:06)
[2018-11-30] VITALS (10 sets, daily range): BP systolic 115–153; BP diastolic 62–98; PULSE 68–101; RESP 18–24; TEMP 36.7–37.4; O2SAT 94–100
[2018-11-30] MEDS: Enoxaparin 40 MG/0.4 ML Syringe SC (05:49)
[2018-11-30] MEDS: 0.9% Normal Saline 1,000 ML 100 ML IV (06:05)
[2018-11-30] MEDS: Budesonide Respules 0.5 MG/2 ML AMPUL.NEB. INHALATION ×2 (07:35→19:55)
--- NOTE | 2018-11-30 09:26 | PCM.PN.HOSP ---
Patient Problems: Active and Suspected Problems History of dementia (Acute) History of coronary artery disease (Acute) Falls frequently (Acute) Closed fracture of right proximal humerus (Acute) Dementia (Acute) History of stroke (Acute) History of seizures (Acute) Subjective: Patient seen and examined. Per his nurse, patient desaturated to about 81% overnight while sleeping and had to be put on 2 L of oxygen. Review of systems otherwise negative. Vitals reviewed. Vitals/I&O's: Vital Signs Temp Pulse Resp BP Pulse Ox 98.6 F 98 18 133/69 H 98 11/30/18 02:15 11/30/18 07:35 11/30/18 07:35 11/30/18 02:15 11/30/18 07:35 Oxygen Flow Rate (L/min) 2 Oxygen Delivery Method Nasal Cannula Weight: 188 lb 11.451 oz Body Mass Index (BMI) 32.3 Finger Stick Blood Glucose 122 Intake and Output for Last 24 Hours 11/28/18 11/29/18 11/30/18 23:59 23:59 23:59 Intake Total 3380.00 / 3820.00 1706.67 / 1706.67 Balance 3380.00 / 3820.00 1706.67 / 1706.67 General: Alert, Cooperative, No apparent distress, HEENT: Atraumatic, PERRLA, EOMI, Normocephalic Oral: Moist Mucosa Neck: Supple, No JVD, Negative Carotid Bruits Lungs: Clear to auscultation, Normal air movement, No rhonchi, No wheeze. on 2L of oxygen Cardiovascular: Regular rate, Regular Rhythm, Normal S1, Normal S2, No murmurs Abdomen: Bowel Sounds Present, Soft, Non Tender, Non-Distended, No Hepato-splenomegaly Extremities: No edema, Capillary Refill Less than 3 Seconds Skin: No rashes, No breakdown Musculoskeletal: - - RUE in sling Lymphatic: No Cervical, Supraclavicular, or Inguinal Adenopathy Neurological: Cranial nerves II-XII grossly intact, Neuro grossly intact Psych/Mental Status: Normal Affect, Appropriate Current Medications Acetaminophen (Tylenol) 650 mg PO Q6H PRN PRN PRN Reason: Non-cardiac pain (mod-severe) Last Admin: 11/29/18 16:25 Dose: 650 mg Documented by: Hydrocodone Bitart/Acetaminophen ([place] 5mg-325mg) 1 - 2 tablet PO Q6H PRN PRN PRN Reason: MOD-SEVERE PAIN (4-12/28) Al Hydroxide/Mg Hydroxide (Mylanta Ii) 15 - 30 ml PO Q4H PRN PRN PRN Reason: INDIGESTION Albuterol Sulfate (Ventolin Aerosols) 2.5 mg INHALATION Q2H PRN PRN PRN Reason: dyspnea, wheezing Last Admin: 11/29/18 04:07 Dose: 2.5 mg Documented by: Albuterol Sulfate (Ventolin Aerosols) 2.5 mg INHALATION Q6HWA.RT [facility] Last Admin: 11/29/18 19:25 Dose: 2.5 mg Documented by: Budesonide (Pulmicort Aerosol) 0.5 mg INHALATION Q12H.RT [facility] Last Admin: 11/30/18 07:35 Dose: 0.5 mg Documented by: Calcium Carbonate (Tums) 500 mg PO DAILY [facility] Last Admin: 11/29/18 10:57 Dose: 500 mg Documented by: Citalopram Hydrobromide (Celexa) 20 mg PO QHS [facility] Last Admin: 11/29/18 22:06 Dose: 20 mg Documented by: Clopidogrel Bisulfate (Plavix) 75 mg PO DAILY [facility] Last Admin: 11/29/18 10:24 Dose: 75 mg Documented by: Diphenhydramine HCl (Benadryl) 25 mg PO QHS [facility] Last Admin: 11/29/18 21:56 Dose: 25 mg Documented by: Donepezil HCl (Aricept) 10 mg PO DAILY [facility] Last Admin: 11/29/18 10:24 Dose: 10 mg Documented by: Duloxetine HCl (Cymbalta) 30 mg PO BID [facility] Last Admin: 11/29/18 22:06 Dose: 30 mg Documented by: Enoxaparin Sodium (Lovenox) 40 mg SC DAILY@0600 [facility] Last Admin: 11/30/18 05:49 Dose: 40 mg Documented by: Erythromycin () 1 applic EACH EYE 4X/DAY [facility] Last Admin: 11/29/18 21:55 Dose: 1 applicatio Documented by: Hydralazine HCl (Apresoline Iv) 10 mg IV Q4H PRN PRN PRN Reason: SBP > 160 Sodium Chloride () 1,000 mls @ 100 mls/hr IV .Q10H [facility] Last Admin: 11/30/18 06:05 Dose: 100 mls/hr Documented by: Sodium Chloride () 250 mls @ 15 mls/hr IV .[id number] PRN PRN Reason: SALINE FLUSH Levetiracetam (Keppra Tablet) 500 mg PO BID [facility] Last Admin: 11/29/18 22:06 Dose: 500 mg Documented by: Losartan Potassium (Cozaar) 25 mg PO DAILY [facility] Last Admin: 11/29/18 10:24 Dose: 25 mg Documented by: Magnesium Hydroxide (Milk Of Magnesia) 30 ml PO DAILY PRN PRN Reason: Constipation Melatonin (Melatonin) 3 mg PO QHS [facility] Last Admin: 11/29/18 22:06 Dose: 3 mg Documented by: Memantine (Namenda) 10 mg PO BID [facility] Last Admin: 11/29/18 22:06 Dose: 10 mg Documented by: Morphine Sulfate () 1 - 2 mg IV Q4H PRN PRN PRN Reason: PAIN Nitroglycerin (Nitrostat) 0.4 mg SUBLINGUAL Q5M PRN PRN Reason: CARDIAC/CHEST PAIN Nutritional Formula (Lactose Free) (Ensure Enlive) 120 ml PO 4X/DAY [facility] Last Admin: 11/29/18 22:11 Dose: 120 ml Documented by: Olanzapine (Zyprexa) 10 mg PO QHS [facility] Last Admin: 11/29/18 22:06 Dose: 10 mg Documented by: Ondansetron HCl (Zofran) 4 mg IV Q8H PRN PRN PRN Reason: NAUSEA/VOMITING Promethazine HCl (Phenergan Oral Solution (6.25 Mg/5 Ml)) 12.5 mg PO Q6H PRN PRN PRN Reason: COUGH Psyllium Hydrophilic Mucilloid (Metamucil) 1 packet PO DAILY PRN PRN PRN Reason: Constipation Senna/Docusate Sodium (Senokot-S, Kristina-Colace) 2 tablet PO BID PRN PRN PRN Reason: Constipation Sodium Chloride () 10 - 40 ml IV UD PRN PRN Reason: SALINE FLUSH Last Admin: 11/28/18 23:12 Dose: 10 ml Documented by: Ziprasidone (Geodon) 20 mg PO DAILY@1700 [facility] Last Admin: 11/29/18 17:55 Dose: 20 mg Documented by: Medical Necessity - Tobacco Use Smoking Status: Former smoker Tobacco Use: Secondhand Assessment/Plan All Active Problems History of dementia (Acute) History of coronary artery disease (Acute) Falls frequently (Acute) Closed fracture of right proximal humerus (Acute) Dementia (Acute) History of stroke (Acute) History of seizures (Acute) 1. Right upper humeral fracture due to mechanical fall sustained fracture ~ 1 week ago RUE in sling. PT/OT consult fall precautions was seen at [facility] ED and conservative management was advocated 2. Nocturnal hypoxia desaturated overnight to 81% whilst sleeping, and needed 2L of oxygen by nasal canula this is likely due to undiagnosed WILBER o/a of patient noted snoring whilst sleeping. will consult pulmonology, so patient can be seen quickly upon discharge by pulmonology 3. Debility due to dementia and mechanical fall as under 1. PT/OT consult 4. Dementia with behavioural disturbance on aricept and memantine fall precautions PT/OT consult 5. COPD: on duoneb inhalers. 6. Anxiety, depression and bipolar disorder on ziprasidone and duloxetine 7. Seizure disorder: on Keppra 8. History of CVA: stable. ON plavix. 9. History of valvular heart disease: ? mitral valve prolapse. Stable DVT prophylaxis: lovenox Disposition: awaiting placement Code Visit Inpatient E&M: 72487 Subs Hosp L2
--- NOTE | 2018-11-30 09:30 | CASEMGMT ---
Addendum entered by Hannah Lam 11/30/18 11:33: SW in to speak with pt regarding pt's brother number. Pt is not able to answer questions at this time. SW asked pt if he had a cell phone that this worker could look through. Pt is able to shake his head no. SW looked on pt's board and no numbers are listed for family members. SW again tried to call pt's brother Marino with no answer. SW again left message to call this worker. SW again tried to call Annie, pt's sister in law with no answer and no voicemail to set up. SW will continue to try to contact pt's brother Marino to discuss discharge plans. Original Note: Social Work Note SW attempted to call pt's brother Marino again with no answer, voicemail left. SW attempted to call pt's sister in law Annie on demographics sheet to get number for Marino and there was no answer and not able to leave message. SW reviewed HCPOA and there is a different number listed for Marino. SW attempted to all different number for Marino and call just kept ringing with no answer and not able to leave message. SW will continue to try to get a hold of pt's brother or sister in law. Hannah Lam FINE ARTS CHAIR,PLANNING SPECIALIST
--- NOTE | 2018-11-30 10:15 | CON.PCM_ITS ---
Reason for Consult Date of Consultation: 11/30/18 Reason for Consultation: Nocturnal Hypoxia, concern for WILBER History of Present Illness: The patient is a 63-year-old male, with a history as outlined below, who presented to the emergency department in the setting of a recent fall, having sustained a right proximal humerus fracture. The patient has underlying dementia and failure to thrive. Due to the patient's inability to care for himself, he was admitted to the hospital to help facilitate long-term placement. Unfortunately, the patient is currently too somnolent to provide any additional input into his medical history or answer any of my questions. He does have a documented history of COPD in the chart, of unknown severity. His smoking status is not known to me. The patient was not able to tell me if he has ever completed testing or work-up for underlying sleep disordered breathing previously. Nevertheless, the patient was noted to have periodic oxygen desaturations while sleeping last night on room air. Therefore, he was placed on 2 L/min of supplemental oxygen with sleep. The patient is currently receiving scheduled nebs. I do suspect that his current level of somnolence is the consequence of polypharmacy, as the patient did receive 20 mg of Geodon, 10 mg of Zyprexa, 3 mg of melatonin and 25 mg of Benadryl last evening. Past Medical History Past Medical History (Chronic Problems): Chronic Problems Dementia (Chronic) HTN (hypertension) (Chronic) COPD (chronic obstructive pulmonary disease) (Chronic) Obesity (BMI 30.0-34.9) (Chronic) Stroke (Chronic) Seizure (Chronic) Allergies venom-honey bee [bee venom (honey bee)] Allergy (Verified 11/28/18 16:04) Anaphylaxis Home Medications: Ambulatory Orders Medication Instructions Recorded Calcium Carbonate 600 mg PO DAILY 07/12/18 Clopidogrel Bisulfate [Plavix] 75 mg PO DAILY 07/12/18 Donepezil HCl [Aricept] 10 mg PO DAILY 07/12/18 Duloxetine HCl 30 mg PO BID 07/12/18 Levetiracetam 500 mg PO BID 07/12/18 Losartan Potassium 25 mg PO DAILY 07/12/18 Memantine HCl 10 mg PO BID 07/12/18 Mometasone/Formoterol [Dulera 200 2 puff IH BID 07/12/18 Mcg/5 Mcg Inhaler] Ziprasidone HCl 20 mg PO DINNER 07/12/18 Hydrocodone/Acetaminophen 1 tab PO Q6H PRN PRN 11/28/18 [Hydrocodone-Acetamin 5-325 mg] Promethazine HCl 6.25 - 12.5 mg PO Q6H PRN PRN 11/28/18 Albuterol Inhaler [Ventolin Hfa 1 - 2 puff INHALATION Q4H PRN PRN 11/29/18 (SP)] Citalopram [Celexa] 20 mg PO QHS 11/29/18 Olanzapine 10 mg PO QHS 11/29/18 Surgical History: - - Patient and family poor historians, note no CABG but note 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 Psychiatric History: Anxiety, Bipolar, Depression, Prior suicide attempt Lives: With Family - Patient lives with his brother who is his healthcare power of regulatory attorney and his [id number]. Smoking Status: Former smoker Tobacco Use: Secondhand Alcohol: None Drugs: None - *Family History Maternal History Items: Heart Disease, Hypertension Paternal History Items: High Cholesterol, Heart Disease Sibling History Items: Heart Disease, Stroke Review of Systems Unable to obtain accurate/complete ROS d/t: Due to encephalopathy Patient Problems: Active and Suspected Problems History of dementia (Acute) History of coronary artery disease (Acute) Falls frequently (Acute) Closed fracture of right proximal humerus (Acute) Dementia (Acute) History of stroke (Acute) History of seizures (Acute) Objective: The patient's most recent lab work, culture data and imaging studies have all been personally reviewed. - Physical Exam General: Lethargic, - - Will only arouse to verbal stimulation and shake head yes or no. Unkempt in appearance. HEENT: Atraumatic, Normocephalic Oral: No Gingival or Mucosal Lesions/ Ulcerations Neck: Supple, No Nodes, Trachea Midline Lungs: No rhonchi, No wheeze, No rales, Diminished Cardiovascular: Regular rate, Regular Rhythm, Normal S1, Normal S2, No murmurs Abdomen: Bowel Sounds Present, Soft, Non Tender, Obese Extremities: No cyanosis, No edema, - - Right upper extremity in sling Skin: No breakdown Musculoskeletal: No Muscle Wasting Lymphatic: No Cervical, Supraclavicular, or Inguinal Adenopathy Neurological: - - No focal neurological deficits. Psych/Mental Status: Flat Affect Vital Signs Temp Pulse Resp BP Pulse Ox 98.6 F 98 18 133/69 H 98 11/30/18 02:15 11/30/18 07:35 11/30/18 07:35 11/30/18 02:15 11/30/18 07:35 Oxygen Flow Rate (L/min) 2 Oxygen Delivery Method Nasal Cannula Weight: 188 lb 11.451 oz Body Mass Index (BMI) 32.3 Finger Stick Blood Glucose 122 Intake and Output for Last 24 Hours 11/28/18 11/29/18 11/30/18 23:59 23:59 23:59 Intake Total 3380.00 / 3820.00 1706.67 / 1706.67 Balance 3380.00 / 3820.00 1706.67 / 1706.67 Laboratory Tests Past 24 Hrs 11/30/18 10:11 pH Pending Bicarbonate Actual Pending POC Total CO2 Pending Base Excess Pending O2 Saturation Pending ABG pCO2 Pending ABG pO2 Pending Labs (Last 48 Hours) 11/28/18 11/28/18 11/29/18 20:12 20:12 05:10 WBC 9.8 9.4 RBC 3.72 L 3.45 L Hgb 11.2 L 10.5 L Hct 35.1 L 32.5 L MCV 94.4 H 94.2 H MCH 30.1 30.4 MCHC 31.9 L 32.3 RDW Std Deviation 45.0 H 44.7 H RDW Coeff of Martine 13.1 13.1 Plt Count 221 186 MPV 10.7 11.1 Immature Gran % (Auto) 0.200 0.300 Neut % (Auto) 70.2 H 73.4 H Lymph % (Auto) 13.1 L 12.2 L Cavalier % (Auto) 12.2 H 10.5 H Eos % (Auto) 4.2 3.5 Baso % (Auto) 0.1 0.1 Absolute Neuts (auto) 6.9 6.9 Absolute Lymphs (auto) 1.29 1.14 Nucleated RBC % 0 0 pH Bicarbonate Actual POC Total CO2 Base Excess O2 Saturation ABG pCO2 ABG pO2 Sodium 138 Potassium 3.5 Chloride 105 Carbon Dioxide 29.0 Anion Gap 4 L BUN 14 Creatinine 0.72 Estim Creat Clear Calc 85.65 Est GFR (MDRD) Af Amer 140 Est GFR (MDRD) Non-Af 116 BUN/Creatinine Ratio 19.4 Glucose 95 Calcium 8.3 L Phosphorus 2.9 Magnesium 1.8 Total Bilirubin 0.40 AST 25 ALT 28 Alkaline Phosphatase 86 Total Protein 7.2 Albumin 3.1 L Globulin 4.1 Albumin/Globulin Ratio 0.8 L 11/29/18 11/30/18 05:10 10:11 WBC RBC Hgb Hct MCV MCH MCHC RDW Std Deviation RDW Coeff of Martine Plt Count MPV Immature Gran % (Auto) Neut % (Auto) Lymph % (Auto) Cavalier % (Auto) Eos % (Auto) Baso % (Auto) Absolute Neuts (auto) Absolute Lymphs (auto) Nucleated RBC % pH Pending Bicarbonate Actual Pending POC Total CO2 Pending Base Excess Pending O2 Saturation Pending ABG pCO2 Pending ABG pO2 Pending Sodium 141 Potassium 3.6 Chloride 109 H Carbon Dioxide 25.0 Anion Gap 7 BUN 11 Creatinine 0.62 L Estim Creat Clear Calc 99.46 Est GFR (MDRD) Af Amer 169 Est GFR (MDRD) Non-Af 139 BUN/Creatinine Ratio 17.9 Glucose 108 H Calcium 7.9 L Phosphorus Magnesium Total Bilirubin AST ALT Alkaline Phosphatase Total Protein Albumin Globulin Albumin/Globulin Ratio Assessment/Plan All Active Problems History of dementia (Acute) History of coronary artery disease (Acute) Falls frequently (Acute) Closed fracture of right proximal humerus (Acute) Dementia (Acute) History of stroke (Acute) History of seizures (Acute) RECOMMENDATIONS: 1. Strongly recommend withdrawal of so many sedating medications at nighttime. Scheduled melatonin and Benadryl were discontinued. 2. The patient may require dose de-escalation in his Zyprexa and Geodon. 3. Perform overnight trending pulse oximetry on room air if feasible to qualify patient for nocturnal O2, if needed. 4. Ideally, the patient can be followed up in the pulmonary medicine clinic, at which time, orders for diagnostic polysomnogram can be placed. 5. Empiric nocturnal BiPAP therapy can be trialed, depending on the patient's hospital length of stay. 6. Continue bronchodilators as ordered. IMPRESSIONS: 1. Nocturnal hypoxemia Unclear if this could be related to intrinsic sleep disordered breathing versus underlying pulmonary disorder such as COPD contributing. Regardless, we will place an order for an overnight trending oximetry study to be completed tonight, if feasible, on room air. This would allow us to qualify the patient for supplemental O2 on a nocturnal basis upon discharge from the hospital. Once the patient is more alert I will attempt to obtain additional information from him regarding symptoms concerning for sleep disordered breathing. If present, the patient can follow-up in the pulmonary medicine clinic after discharge, at which time a diagnostic polysomnogram can be completed. 2. Documented COPD of unknown severity Agree with continuing scheduled bronchodilators and budesonide as ordered. 3. Encephalopathy Suspect this is likely secondary to polypharmacy, as the patient received several sedating medications last evening. I discontinued his scheduled melatonin and Benadryl. The patient's dose of his Zyprexa and Geodon may need to be dose de-escalated. 4. Recent right humeral fracture secondary to mechanical fall/baseline dementia/anxiety/depression/bipolar disorder/unspecified seizure disorder Complicates care, management, recovery and prognosis. Physical therapy to work with the patient. Disposition to long-term facility is pending. This note was generated with [employer] dictation software. It may contain incorrect words, spelling, and punctuation that were not noted in checking the note before signing. Code Visit Inpatient E&M: 10623 Init Hosp L3
[2018-11-30 10:16] LABS: Allen Test POS; Base Excess 0 mmol/L (-2 to +2); Bicarbonate 25.6 mmol/L (22-26); Blood Gas Specimen Type ART; O2 Delivery Device Nasal Can; PO2 89 mmHG (75-100); SITE L Brachial; SO2 96 % (95-99); Time Given 1008; Total Carbon Dioxide 27 mmol/L; pCO2 46.8 mmHg (35-45); pH 7.35 (7.35-7.45)
[2018-11-30 10:25] LABS: Bedside Glucose 110 mg/dL (70-110)
[2018-11-30] MEDS: Erythromycin Base 1 OPTH.TUBE 1 APPLIC EACH EYE ×4 (11:32→21:02)
[2018-11-30] MEDS: Albuterol 2.5 MG/3 ML VIAL.NEB. INHALATION ×3 (12:58→19:54)
--- NOTE | 2018-11-30 13:10 | CPS ---
Pt moved down to 1L NC.
[2018-11-30] MEDS: Clopidogrel Bisulfate 75 MG Tablet PO (14:14)
[2018-11-30] MEDS: Losartan Potassium 25 MG Tablet PO (14:14)
[2018-11-30] MEDS: DULoxetine Hcl 30 MG Capsule PO ×2 (14:14→21:02)
[2018-11-30] MEDS: Donepezil HCl 10 MG Tablet PO (14:14)
[2018-11-30] MEDS: levETIRAcetam 500 MG Tablet PO ×2 (14:15→21:02)
[2018-11-30] MEDS: Calcium Carbonate 500 MG Tablet PO (14:15)
[2018-11-30] MEDS: Memantine Hydrochloride 10 MG Tablet PO ×2 (14:15→21:02)
--- NOTE | 2018-11-30 15:30 | CASEMGMT ---
Social Work Note Pt is more alert, able to answer some questions. SW met with pt, introduced self and role at [facility]. SW educated pt on SNF and that the recommendation is for pt to go to SNF. SW provided pt with list of area SNF that accept pt's insurance. SW verbally went over list with pt. Pt agreeable to SNF and is agreeable to [facility]. SW placed a call to [facility]. [facility] is not available. AILYN spoke with AILYN Koehler at [facility] and provided referral. AILYN faxed referral to [facility]. Plan: [facility] pending acceptance and pre-cert Hannah Lam DIRECTOR OF STRATEGIC MARKETING, [employer]LE [employer] CUTTING MACHINE OPERATOR
[2018-11-30] MEDS: Citalopram 20 MG Tablet PO (21:02)
[2018-11-30] MEDS: OLANZapine 10 MG Tablet PO (21:02)
[2018-12-01] VITALS (15 sets, daily range): BP systolic 117–146; BP diastolic 60–85; PULSE 90–109; RESP 20–32; TEMP 36.7–38; O2SAT 92–99
[2018-12-01] MEDS: Acetaminophen 325 MG Tablet 650 MG PO ×2 (03:14→17:02)
[2018-12-01] MEDS: Enoxaparin 40 MG/0.4 ML Syringe SC (05:46)
[2018-12-01] MEDS: Albuterol 2.5 MG/3 ML VIAL.NEB. INHALATION ×3 (06:33→19:10)
[2018-12-01] MEDS: Budesonide Respules 0.5 MG/2 ML AMPUL.NEB. INHALATION ×2 (06:33→19:10)
--- NOTE | 2018-12-01 07:51 | PN_ITS ---
Patient Problems: Active and Suspected Problems History of dementia (Acute) History of coronary artery disease (Acute) Falls frequently (Acute) Closed fracture of right proximal humerus (Acute) Dementia (Acute) History of stroke (Acute) History of seizures (Acute) Subjective: The patient was seen and examined at the bedside this morning. Events from the last 24 hours have been reviewed. The patient is currently afebrile, hemodynamically stable and maintaining appropriate oxygen saturations on room air. The patient is much more alert today and currently working with physical therapy. An overnight oximetry study was completed last evening on room air. It did indicate that the patient was below 88% over 17 minutes. The patient would qualify for supplemental O2 on a nightly basis based upon this oximetry report. Objective: The patient's most recent lab work, culture data and imaging studies have all been personally reviewed. - Physical Exam General: Alert, Cooperative HEENT: Atraumatic, Normocephalic Oral: No Gingival or Mucosal Lesions/ Ulcerations Neck: Supple, No Nodes, Trachea Midline Lungs: No rhonchi, No wheeze, No rales, Diminished Cardiovascular: Regular rate, Regular Rhythm, Normal S1, Normal S2, No murmurs Abdomen: Bowel Sounds Present, Soft, Non Tender, Obese Extremities: No clubbing, No cyanosis, - - Right upper extremity remains in sling Skin: No breakdown Musculoskeletal: No Muscle Wasting Lymphatic: No Cervical, Supraclavicular, or Inguinal Adenopathy Neurological: - - No focal neurological deficits. Ambulates with assistance. Vital Signs Temp Pulse Resp BP Pulse Ox 98.7 F 109 H 24 H 141/85 H 95 12/01/18 03:10 12/01/18 03:19 12/01/18 03:19 12/01/18 03:10 12/01/18 03:10 Oxygen Flow Rate (L/min) 1 Oxygen Delivery Method Room Air Weight: 188 lb 11.451 oz Body Mass Index (BMI) 32.3 Finger Stick Blood Glucose 122 Intake and Output for Last 24 Hours 11/29/18 11/30/18 12/01/18 23:59 23:59 23:59 Intake Total 3380.00 / 3820.00 2810.00 / 2810.00 150 / 150 Balance 3380.00 / 3820.00 2810.00 / 2810.00 150 / 150 Laboratory Tests Past 24 Hrs 11/30/18 10:11 Specimen Type ART Sample Site L Brachial pH 7.35 Bicarbonate Actual 25.6 POC Total CO2 27 Base Excess 0 O2 Saturation 96 ABG pCO2 46.8 H ABG pO2 89 Farhad Test POS O2 Delivery Device Nasal Can Liter Flow 2.0 Blood Gas Notified Whom [facility] Blood Gas Notified Time 1008 POC Glucose 11/30/18 10:20 POC Glucose 110 Labs (Last 48 Hours) 11/30/18 11/30/18 10:11 10:20 Specimen Type ART Sample Site L Brachial pH 7.35 Bicarbonate Actual 25.6 POC Total CO2 27 Base Excess 0 O2 Saturation 96 ABG pCO2 46.8 H ABG pO2 89 Farhad Test POS O2 Delivery Device Nasal Can Liter Flow 2.0 Blood Gas Notified Whom [facility] Blood Gas Notified Time 1008 POC Glucose 110 Medical Necessity - Tobacco Use Smoking Status: Former smoker Tobacco Use: Secondhand Assessment/Plan All Active Problems History of dementia (Acute) History of coronary artery disease (Acute) Falls frequently (Acute) Closed fracture of right proximal humerus (Acute) Dementia (Acute) History of stroke (Acute) History of seizures (Acute) RECOMMENDATIONS: 1. Utilize 2L/min of supplemental oxygen nightly. 2. Follow up in the pulmonary medicine clinic within 2 weeks of discharge. 3. The patient will need to complete a diagnostic PSG and PFT's, following discharge. 4. Will sign off. Please call with questions. IMPRESSIONS: 1. Nocturnal hypoxemia Unclear if this could be related to intrinsic sleep disordered breathing versus underlying pulmonary disorder such as COPD. The patient would qualify for supplemental oxygen nightly based upon his overnight oximetry, which indicated >17 minutes spent with saturations less than 88%. I would recommend that the patient utilize 2L/min nightly until a formal sleep study can be completed on an outpatient basis. The patient should ideally follow up in the pulmonary medicine clinic within 2 weeks of discharge, at which time, orders can be placed for a diagnostic PSG and formal pulmonary function studies. 2. Documented COPD of unknown severity Agree with continuing scheduled bronchodilators and budesonide as ordered. 3. Encephalopathy Improved. Suspect this was likely secondary to polypharmacy. 4. Recent right humeral fracture secondary to mechanical fall/baseline dementia/anxiety/depression/bipolar disorder/unspecified seizure disorder Complicates care, management, recovery and prognosis. Physical therapy to work with the patient. Disposition to care home facility is pending. This note was generated with [employer] dictation software. It may contain incorrect words, spelling, and punctuation that were not noted in checking the note before signing. Code Visit Inpatient E&M: 53000 Subs Hosp L2
--- NOTE | 2018-12-01 08:11 | CPS ---
placed pt on 2lpm O2 via NC d/t WOB, Sat on room air is 92%.
--- NOTE | 2018-12-01 09:59 | CASEMGMT ---
Addendum entered by Hannah Lam 12/01/18 13:37: AILYN faxed updated clinicals to Chaya at [facility]. Plan: [facility] pending pre-cert and categorical determination JUNE Sprague Addendum entered by Hannah Lam 12/01/18 10:09: AILYN received call from Chaya at [facility]. Chaya states she is able to accept pt and will submit for pre-cert. [facility] asked for updated PT/OT notes as pt didn't work with PT/OT yesterday. AILYN informed Chaya on pt's family and pt's psych history. AILYN informed [facility] that pt is in observation status so this worker will do the PAS/RR and ask about categorical determination for pt. [facility] states understanding and is agreeable to categorical determination. Pre-cert will need to be obtained before categorical determination can be completed. Plan: [facility] pending pre-cert and categorical determination Original Note: Social Work Note AILYN attempted to call Chaya at [facility]. Chaya is not available at this time. AILYN asked for [facility] to call this worker back as soon as possible. Plan: SNF pending acceptance and pre-cert JUNE Sprague
[2018-12-01] MEDS: Donepezil HCl 10 MG Tablet PO (10:31)
[2018-12-01] MEDS: Clopidogrel Bisulfate 75 MG Tablet PO (10:32)
[2018-12-01] MEDS: Memantine Hydrochloride 10 MG Tablet PO ×2 (10:32→22:00)
[2018-12-01] MEDS: DULoxetine Hcl 30 MG Capsule PO ×2 (10:32→21:59)
[2018-12-01] MEDS: levETIRAcetam 500 MG Tablet PO ×2 (10:32→22:00)
[2018-12-01] MEDS: Losartan Potassium 25 MG Tablet PO (10:32)
[2018-12-01] MEDS: Erythromycin Base 1 OPTH.TUBE 1 APPLIC EACH EYE ×4 (10:32→22:01)
[2018-12-01] MEDS: Calcium Carbonate 500 MG Tablet PO (10:35)
--- NOTE | 2018-12-01 13:09 | PCM.PN.HOSP ---
Patient Problems: Active and Suspected Problems History of dementia (Acute) History of coronary artery disease (Acute) Falls frequently (Acute) Closed fracture of right proximal humerus (Acute) Dementia (Acute) History of stroke (Acute) History of seizures (Acute) Subjective: Patient seen and examined. He remains quite drowsy and appears to be deeply asleep. Unable to do review of systems. Labs and vitals reviewed. Overnight pulse oximetry done and patient saturation was below 88% on room air for more than 17 minutes. He therefore qualifies for home nocturnal oxygen upon discharge. Vitals/I&O's: Vital Signs Temp Pulse Resp BP Pulse Ox 98.1 F 102 H 32 H 130/80 H 96 12/01/18 11:56 12/01/18 12:10 12/01/18 12:10 12/01/18 11:30 12/01/18 12:10 Oxygen Flow Rate (L/min) 1 Oxygen Delivery Method Room Air Weight: 188 lb 11.451 oz Body Mass Index (BMI) 32.3 Finger Stick Blood Glucose 122 Intake and Output for Last 24 Hours 11/29/18 11/30/18 12/01/18 23:59 23:59 23:59 Intake Total 3380.00 / 3820.00 2810.00 / 2810.00 810 / 810 Balance 3380.00 / 3820.00 2810.00 / 2810.00 810 / 810 General: drowy, lethargic HEENT: Atraumatic, PERRLA, EOMI, Normocephalic Oral: Moist Mucosa Neck: Supple, No JVD, Negative Carotid Bruits Lungs: Clear to auscultation, Normal air movement, No rhonchi, No wheeze. on 2L of oxygen Cardiovascular: Regular rate, Regular Rhythm, Normal S1, Normal S2, No murmurs Abdomen: Bowel Sounds Present, Soft, Non Tender, Non-Distended, No Hepato-splenomegaly Extremities: No edema, Capillary Refill Less than 3 Seconds Skin: No rashes, No breakdown Musculoskeletal: - - RUE in sling Lymphatic: No Cervical, Supraclavicular, or Inguinal Adenopathy Neurological: Cranial nerves II-XII grossly intact, Neuro grossly intact Psych/Mental Status: drowsy Current Medications Acetaminophen (Tylenol) 650 mg PO Q6H PRN PRN PRN Reason: Non-cardiac pain (mod-severe) Last Admin: 12/01/18 03:14 Dose: 650 mg Documented by: Al Hydroxide/Mg Hydroxide (Mylanta Ii) 15 - 30 ml PO Q4H PRN PRN PRN Reason: INDIGESTION Albuterol Sulfate (Ventolin Aerosols) 2.5 mg INHALATION Q2H PRN PRN PRN Reason: dyspnea, wheezing Last Admin: 11/30/18 15:00 Dose: 2.5 mg Documented by: Albuterol Sulfate (Ventolin Aerosols) 2.5 mg INHALATION Q6HWA.RT [facility] Last Admin: 12/01/18 12:10 Dose: 2.5 mg Documented by: Budesonide (Pulmicort Aerosol) 0.5 mg INHALATION Q12H.RT [facility] Last Admin: 12/01/18 06:33 Dose: 0.5 mg Documented by: Calcium Carbonate (Tums) 500 mg PO DAILY [facility] Last Admin: 12/01/18 10:35 Dose: 500 mg Documented by: Citalopram Hydrobromide (Celexa) 20 mg PO QHS [facility] Last Admin: 11/30/18 21:02 Dose: 20 mg Documented by: Clopidogrel Bisulfate (Plavix) 75 mg PO DAILY [facility] Last Admin: 12/01/18 10:32 Dose: 75 mg Documented by: Donepezil HCl (Aricept) 10 mg PO DAILY [facility] Last Admin: 12/01/18 10:31 Dose: 10 mg Documented by: Duloxetine HCl (Cymbalta) 30 mg PO BID [facility] Last Admin: 12/01/18 10:32 Dose: 30 mg Documented by: Enoxaparin Sodium (Lovenox) 40 mg SC DAILY@0600 [facility] Last Admin: 12/01/18 05:46 Dose: 40 mg Documented by: Erythromycin () 1 applic EACH EYE 4X/DAY [facility] Last Admin: 12/01/18 10:32 Dose: 1 applicatio Documented by: Hydralazine HCl (Apresoline Iv) 10 mg IV Q4H PRN PRN PRN Reason: SBP > 160 Sodium Chloride () 250 mls @ 15 mls/hr IV .[id number] PRN PRN Reason: SALINE FLUSH Levetiracetam (Keppra Tablet) 500 mg PO BID [facility] Last Admin: 12/01/18 10:32 Dose: 500 mg Documented by: Losartan Potassium (Cozaar) 25 mg PO DAILY [facility] Last Admin: 12/01/18 10:32 Dose: 25 mg Documented by: Magnesium Hydroxide (Milk Of Magnesia) 30 ml PO DAILY PRN PRN Reason: Constipation Memantine (Namenda) 10 mg PO BID [facility] Last Admin: 12/01/18 10:32 Dose: 10 mg Documented by: Morphine Sulfate () 1 - 2 mg IV Q4H PRN PRN PRN Reason: PAIN Nitroglycerin (Nitrostat) 0.4 mg SUBLINGUAL Q5M PRN PRN Reason: CARDIAC/CHEST PAIN Nutritional Formula (Lactose Free) (Ensure Enlive) 120 ml PO 4X/DAY [facility] Last Admin: 12/01/18 10:31 Dose: 120 ml Documented by: Olanzapine (Zyprexa) 10 mg PO QHS [facility] Last Admin: 11/30/18 21:02 Dose: 10 mg Documented by: Ondansetron HCl (Zofran) 4 mg IV Q8H PRN PRN PRN Reason: NAUSEA/VOMITING Promethazine HCl (Phenergan Oral Solution (6.25 Mg/5 Ml)) 12.5 mg PO Q6H PRN PRN PRN Reason: COUGH Psyllium Hydrophilic Mucilloid (Metamucil) 1 packet PO DAILY PRN PRN PRN Reason: Constipation Senna/Docusate Sodium (Senokot-S, Kristina-Colace) 2 tablet PO BID PRN PRN PRN Reason: Constipation Sodium Chloride () 10 - 40 ml IV UD PRN PRN Reason: SALINE FLUSH Last Admin: 11/28/18 23:12 Dose: 10 ml Documented by: Medical Necessity - Tobacco Use Smoking Status: Former smoker Tobacco Use: Secondhand Assessment/Plan All Active Problems History of dementia (Acute) History of coronary artery disease (Acute) Falls frequently (Acute) Closed fracture of right proximal humerus (Acute) Dementia (Acute) History of stroke (Acute) History of seizures (Acute) 1. Right upper humeral fracture due to mechanical fall sustained fracture ~ 1 week ago RUE in sling. PT/OT consult fall precautions conservative management for now 2. Nocturnal hypoxia likely due to undiagnosed WILBER Overnight pulse oximetry showed that patient saturation dropped to less than 88% for over 17 minutes. He therefore qualifies for home oxygen. To start 2 L of oxygen nightly. Will need formal sleep study upon discharge. pulmonology on board 3. MEtabolic encephalopathy due to polypharmacy Geodon and duloxetine were held overnight. Patient still does remain drowsy Continue close monitoring. 4. Debility due to dementia and mechanical fall as under 1. PT/OT consult 5. Dementia with behavioural disturbance on aricept and memantine fall precautions PT/OT consult 6. COPD: on duoneb inhalers. 7. Anxiety, depression and bipolar disorder on ziprasidone and duloxetine 8. Seizure disorder: on Keppra 9. History of CVA: stable. ON plavix. 10. History of valvular heart disease: ? mitral valve prolapse. Stable DVT prophylaxis: lovenox Disposition: awaiting placement Code Visit OBSV E&M: 56314 Subsequent observation care L2
[2018-12-01] MEDS: 0.9% NaCl Peripheral Flush Adult/Peds IV ×2 (17:03→22:06)
[2018-12-01] MEDS: OLANZapine 10 MG Tablet PO (21:59)
[2018-12-01] MEDS: Citalopram 20 MG Tablet PO (22:01)
[2018-12-02] VITALS (8 sets, daily range): BP systolic 122–137; BP diastolic 72–90; PULSE 88–105; RESP 16–20; TEMP 36.7–37.3; O2SAT 95–96
[2018-12-02] MEDS: Acetaminophen 325 MG Tablet 650 MG PO (03:12)
[2018-12-02] MEDS: Enoxaparin 40 MG/0.4 ML Syringe SC (05:53)
[2018-12-02] MEDS: Donepezil HCl 10 MG Tablet PO (08:09)
[2018-12-02] MEDS: DULoxetine Hcl 30 MG Capsule PO ×2 (08:10→21:58)
[2018-12-02] MEDS: levETIRAcetam 500 MG Tablet PO ×2 (08:10→21:58)
[2018-12-02] MEDS: Losartan Potassium 25 MG Tablet PO (08:10)
[2018-12-02] MEDS: Clopidogrel Bisulfate 75 MG Tablet PO (08:11)
[2018-12-02] MEDS: Calcium Carbonate 500 MG Tablet PO (08:11)
[2018-12-02] MEDS: Memantine Hydrochloride 10 MG Tablet PO ×2 (08:11→21:58)
[2018-12-02] MEDS: Erythromycin Base 1 OPTH.TUBE 1 APPLIC EACH EYE ×4 (08:12→21:58)
--- NOTE | 2018-12-02 09:19 | PN_ITS ---
Patient Problems: Active and Suspected Problems History of dementia (Acute) History of coronary artery disease (Acute) Falls frequently (Acute) Closed fracture of right proximal humerus (Acute) Dementia (Acute) History of stroke (Acute) History of seizures (Acute) Subjective: Patient seen and examined. He is much more alert today sitting up in a chair eating breakfast by himself. He was able to answer few questions and had no complaints today. Review of systems otherwise negative. He is awaiting placement in the [facility]. Vitals/I&O's: Vital Signs Temp Pulse Resp BP Pulse Ox 98.4 F 88 20 H 122/72 H 96 12/02/18 08:00 12/02/18 08:00 12/02/18 08:00 12/02/18 08:00 12/02/18 08:00 Oxygen Flow Rate (L/min) 2 Oxygen Delivery Method Nasal Cannula Weight: 188 lb 11.451 oz Body Mass Index (BMI) 32.3 Finger Stick Blood Glucose 122 Intake and Output for Last 24 Hours 11/30/18 12/01/18 12/02/18 23:59 23:59 23:59 Intake Total 2810.00 / 2810.00 1530 / 1660 230 / 230 Balance 2810.00 / 2810.00 1530 / 1660 230 / 230 General: Alert, Cooperative, No apparent distress, HEENT: Atraumatic, PERRLA, EOMI, Normocephalic Oral: Moist Mucosa Neck: Supple, No JVD, Negative Carotid Bruits Lungs: Clear to auscultation, Normal air movement, No rhonchi, No wheeze. on 2L of oxygen Cardiovascular: Regular rate, Regular Rhythm, Normal S1, Normal S2, No murmurs Abdomen: Bowel Sounds Present, Soft, Non Tender, Non-Distended, No Hepato-splenomegaly Extremities: No edema, Capillary Refill Less than 3 Seconds Skin: No rashes, No breakdown Musculoskeletal: - - RUE in sling Lymphatic: No Cervical, Supraclavicular, or Inguinal Adenopathy Neurological: Cranial nerves II-XII grossly intact, Neuro grossly intact Psych/Mental Status: Normal Affect, Appropriate Current Medications Acetaminophen (Tylenol) 650 mg PO Q6H PRN PRN PRN Reason: Non-cardiac pain (mod-severe) Last Admin: 12/02/18 03:12 Dose: 650 mg Documented by: Al Hydroxide/Mg Hydroxide (Mylanta Ii) 15 - 30 ml PO Q4H PRN PRN PRN Reason: INDIGESTION Albuterol Sulfate (Ventolin Aerosols) 2.5 mg INHALATION Q2H PRN PRN PRN Reason: dyspnea, wheezing Last Admin: 11/30/18 15:00 Dose: 2.5 mg Documented by: Albuterol Sulfate (Ventolin Aerosols) 2.5 mg INHALATION Q6HWA.RT [facility] Last Admin: 12/01/18 19:10 Dose: 2.5 mg Documented by: Budesonide (Pulmicort Aerosol) 0.5 mg INHALATION Q12H.RT [facility] Last Admin: 12/01/18 19:10 Dose: 0.5 mg Documented by: Calcium Carbonate (Tums) 500 mg PO DAILY [facility] Last Admin: 12/02/18 08:11 Dose: 500 mg Documented by: Citalopram Hydrobromide (Celexa) 20 mg PO QHS [facility] Last Admin: 12/01/18 22:01 Dose: 20 mg Documented by: Clopidogrel Bisulfate (Plavix) 75 mg PO DAILY [facility] Last Admin: 12/02/18 08:11 Dose: 75 mg Documented by: Donepezil HCl (Aricept) 10 mg PO DAILY [facility] Last Admin: 12/02/18 08:09 Dose: 10 mg Documented by: Duloxetine HCl (Cymbalta) 30 mg PO BID [facility] Last Admin: 12/02/18 08:10 Dose: 30 mg Documented by: Enoxaparin Sodium (Lovenox) 40 mg SC DAILY@0600 [facility] Last Admin: 12/02/18 05:53 Dose: 40 mg Documented by: Erythromycin () 1 applic EACH EYE 4X/DAY [facility] Last Admin: 12/02/18 08:12 Dose: 1 applicatio Documented by: Hydralazine HCl (Apresoline Iv) 10 mg IV Q4H PRN PRN PRN Reason: SBP > 160 Sodium Chloride () 250 mls @ 15 mls/hr IV .[id number] PRN PRN Reason: SALINE FLUSH Levetiracetam (Keppra Tablet) 500 mg PO BID [facility] Last Admin: 12/02/18 08:10 Dose: 500 mg Documented by: Losartan Potassium (Cozaar) 25 mg PO DAILY [facility] Last Admin: 12/02/18 08:10 Dose: 25 mg Documented by: Magnesium Hydroxide (Milk Of Magnesia) 30 ml PO DAILY PRN PRN Reason: Constipation Memantine (Namenda) 10 mg PO BID [facility] Last Admin: 12/02/18 08:11 Dose: 10 mg Documented by: Morphine Sulfate () 1 - 2 mg IV Q4H PRN PRN PRN Reason: PAIN Nitroglycerin (Nitrostat) 0.4 mg SUBLINGUAL Q5M PRN PRN Reason: CARDIAC/CHEST PAIN Nutritional Formula (Lactose Free) (Ensure Enlive) 120 ml PO 4X/DAY [facility] Last Admin: 12/02/18 08:15 Dose: 120 ml Documented by: Olanzapine (Zyprexa) 10 mg PO QHS [facility] Last Admin: 12/01/18 21:59 Dose: 10 mg Documented by: Ondansetron HCl (Zofran) 4 mg IV Q8H PRN PRN PRN Reason: NAUSEA/VOMITING Promethazine HCl (Phenergan Oral Solution (6.25 Mg/5 Ml)) 12.5 mg PO Q6H PRN PRN PRN Reason: COUGH Psyllium Hydrophilic Mucilloid (Metamucil) 1 packet PO DAILY PRN PRN PRN Reason: Constipation Senna/Docusate Sodium (Senokot-S, Kristina-Colace) 2 tablet PO BID PRN PRN PRN Reason: Constipation Sodium Chloride () 10 - 40 ml IV UD PRN PRN Reason: SALINE FLUSH Last Admin: 12/01/18 22:06 Dose: 10 ml Documented by: Medical Necessity - Tobacco Use Smoking Status: Former smoker Tobacco Use: Secondhand Assessment/Plan All Active Problems History of dementia (Acute) History of coronary artery disease (Acute) Falls frequently (Acute) Closed fracture of right proximal humerus (Acute) Dementia (Acute) History of stroke (Acute) History of seizures (Acute) 1. Right upper humeral fracture due to mechanical fall * sustained fracture ~ 1 week ago * RUE in sling. * PT/OT consult * fall precautions * conservative management for now * 2. Nocturnal hypoxia * likely due to undiagnosed WILBER * Overnight pulse oximetry showed that patient saturation dropped to less than 88% for over 17 minutes. He therefore qualifies for home oxygen. * on 2L of oxygen qhs. Will need formal sleep study upon discharge. * pulmonology on board * 3. MEtabolic encephalopathy due to polypharmacy * Geodon and duloxetine on hold * patient much more alert today * Continue close monitoring. * 4. Debility due to dementia and mechanical fall * as under 1. PT/OT consult * 5. Dementia with behavioural disturbance * on aricept and memantine * fall precautions * PT/OT consult 6. COPD: on duoneb inhalers. 7. Anxiety, depression and bipolar disorder * on ziprasidone and duloxetine; these are on hold o/a of metabolic encephalopathy * 8. Seizure disorder: on Keppra 9. History of CVA: stable. ON plavix. 10. History of valvular heart disease: ? mitral valve prolapse. Stable DVT prophylaxis: lovenox Disposition: awaiting placement Code Visit OBSV E&M: 65671 Subsequent observation care L2
[2018-12-02] MEDS: Albuterol 2.5 MG/3 ML VIAL.NEB. INHALATION ×2 (13:33→19:20)
[2018-12-02] MEDS: Budesonide Respules 0.5 MG/2 ML AMPUL.NEB. INHALATION (19:21)
[2018-12-02] MEDS: Citalopram 20 MG Tablet PO (21:58)
[2018-12-02] MEDS: OLANZapine 10 MG Tablet PO (21:58)
[2018-12-03] VITALS (8 sets, daily range): BP systolic 121–138; BP diastolic 64–78; PULSE 85–102; RESP 18–20; TEMP 36.7–36.9; O2SAT 94–98
[2018-12-03] MEDS: Enoxaparin 40 MG/0.4 ML Syringe SC (06:12)
[2018-12-03] MEDS: Budesonide Respules 0.5 MG/2 ML AMPUL.NEB. INHALATION ×2 (06:52→19:40)
[2018-12-03] MEDS: Albuterol 2.5 MG/3 ML VIAL.NEB. INHALATION ×3 (06:52→19:40)
--- NOTE | 2018-12-03 09:00 | PCM.PN.HOSP ---
Patient Problems: Active and Suspected Problems History of dementia (Acute) History of coronary artery disease (Acute) Falls frequently (Acute) Closed fracture of right proximal humerus (Acute) Dementia (Acute) History of stroke (Acute) History of seizures (Acute) Subjective: Patient seen and examined. No active events overnight. Still awaiting placement. Vitals reviewed. Vitals/I&O's: Vital Signs Temp Pulse Resp BP Pulse Ox 98.4 F 99 18 138/76 H 95 12/03/18 02:40 12/03/18 07:18 12/03/18 07:18 12/03/18 02:40 12/03/18 07:19 Oxygen Flow Rate (L/min) 2 Oxygen Delivery Method Nasal Cannula Weight: 188 lb 11.451 oz Body Mass Index (BMI) 32.3 Finger Stick Blood Glucose 122 Intake and Output for Last 24 Hours 12/01/18 12/02/18 12/03/18 23:59 23:59 23:59 Intake Total 1530 / 1660 630 / 750 120 / 120 Balance 1530 / 1660 630 / 750 120 / 120 General: Alert, Cooperative, No apparent distress, HEENT: Atraumatic, PERRLA, EOMI, Normocephalic Oral: Moist Mucosa Neck: Supple, No JVD, Negative Carotid Bruits Lungs: Clear to auscultation, Normal air movement, No rhonchi, No wheeze. on room air. Cardiovascular: Regular rate, Regular Rhythm, Normal S1, Normal S2, No murmurs Abdomen: Bowel Sounds Present, Soft, Non Tender, Non-Distended, No Hepato-splenomegaly Extremities: No edema, Capillary Refill Less than 3 Seconds Skin: No rashes, No breakdown Musculoskeletal: - - RUE in sling Lymphatic: No Cervical, Supraclavicular, or Inguinal Adenopathy Neurological: Cranial nerves II-XII grossly intact, Neuro grossly intact Psych/Mental Status: Normal Affect, Appropriate Current Medications Acetaminophen (Tylenol) 650 mg PO Q6H PRN PRN PRN Reason: Non-cardiac pain (mod-severe) Last Admin: 12/02/18 03:12 Dose: 650 mg Documented by: Al Hydroxide/Mg Hydroxide (Mylanta Ii) 15 - 30 ml PO Q4H PRN PRN PRN Reason: INDIGESTION Albuterol Sulfate (Ventolin Aerosols) 2.5 mg INHALATION Q2H PRN PRN PRN Reason: dyspnea, wheezing Last Admin: 11/30/18 15:00 Dose: 2.5 mg Documented by: Albuterol Sulfate (Ventolin Aerosols) 2.5 mg INHALATION Q6HWA.RT [facility] Last Admin: 12/03/18 06:52 Dose: 2.5 mg Documented by: Budesonide (Pulmicort Aerosol) 0.5 mg INHALATION Q12H.RT [facility] Last Admin: 12/03/18 06:52 Dose: 0.5 mg Documented by: Calcium Carbonate (Tums) 500 mg PO DAILY [facility] Last Admin: 12/02/18 08:11 Dose: 500 mg Documented by: Citalopram Hydrobromide (Celexa) 20 mg PO QHS [facility] Last Admin: 12/02/18 21:58 Dose: 20 mg Documented by: Clopidogrel Bisulfate (Plavix) 75 mg PO DAILY [facility] Last Admin: 12/02/18 08:11 Dose: 75 mg Documented by: Donepezil HCl (Aricept) 10 mg PO DAILY [facility] Last Admin: 12/02/18 08:09 Dose: 10 mg Documented by: Duloxetine HCl (Cymbalta) 30 mg PO BID [facility] Last Admin: 12/02/18 21:58 Dose: 30 mg Documented by: Enoxaparin Sodium (Lovenox) 40 mg SC DAILY@0600 [facility] Last Admin: 12/03/18 06:12 Dose: 40 mg Documented by: Erythromycin () 1 applic EACH EYE 4X/DAY [facility] Last Admin: 12/02/18 21:58 Dose: 1 applicatio Documented by: Hydralazine HCl (Apresoline Iv) 10 mg IV Q4H PRN PRN PRN Reason: SBP > 160 Sodium Chloride () 250 mls @ 15 mls/hr IV .[id number] PRN PRN Reason: SALINE FLUSH Levetiracetam (Keppra Tablet) 500 mg PO BID [facility] Last Admin: 12/02/18 21:58 Dose: 500 mg Documented by: Losartan Potassium (Cozaar) 25 mg PO DAILY [facility] Last Admin: 12/02/18 08:10 Dose: 25 mg Documented by: Magnesium Hydroxide (Milk Of Magnesia) 30 ml PO DAILY PRN PRN Reason: Constipation Memantine (Namenda) 10 mg PO BID [facility] Last Admin: 12/02/18 21:58 Dose: 10 mg Documented by: Morphine Sulfate () 1 - 2 mg IV Q4H PRN PRN PRN Reason: PAIN Nitroglycerin (Nitrostat) 0.4 mg SUBLINGUAL Q5M PRN PRN Reason: CARDIAC/CHEST PAIN Nutritional Formula (Lactose Free) (Ensure Enlive) 120 ml PO 4X/DAY [facility] Last Admin: 12/02/18 21:58 Dose: 120 ml Documented by: Olanzapine (Zyprexa) 10 mg PO QHS [facility] Last Admin: 12/02/18 21:58 Dose: 10 mg Documented by: Ondansetron HCl (Zofran) 4 mg IV Q8H PRN PRN PRN Reason: NAUSEA/VOMITING Promethazine HCl (Phenergan Oral Solution (6.25 Mg/5 Ml)) 12.5 mg PO Q6H PRN PRN PRN Reason: COUGH Psyllium Hydrophilic Mucilloid (Metamucil) 1 packet PO DAILY PRN PRN PRN Reason: Constipation Senna/Docusate Sodium (Senokot-S, Kristina-Colace) 2 tablet PO BID PRN PRN PRN Reason: Constipation Sodium Chloride () 10 - 40 ml IV UD PRN PRN Reason: SALINE FLUSH Last Admin: 12/01/18 22:06 Dose: 10 ml Documented by: Medical Necessity - Tobacco Use Smoking Status: Former smoker Tobacco Use: Secondhand Assessment/Plan All Active Problems History of dementia (Acute) History of coronary artery disease (Acute) Falls frequently (Acute) Closed fracture of right proximal humerus (Acute) Dementia (Acute) History of stroke (Acute) History of seizures (Acute) 1. Right upper humeral fracture due to mechanical fall RUE in sling. PT/OT consult fall precautions conservative management for now 2. Nocturnal hypoxia likely due to undiagnosed WILBER Overnight pulse oximetry showed that patient saturation dropped to less than 88% for over 17 minutes. He therefore qualifies for home oxygen. on 2L of oxygen qhs. Will need formal sleep study upon discharge. pulmonology on board 3. MEtabolic encephalopathy due to polypharmacy Geodon and duloxetine on hold Continue close monitoring. 4. Debility due to dementia and mechanical fall as under 1. PT/OT consult 5. Dementia with behavioural disturbance on aricept and memantine fall precautions PT/OT consult 6. COPD: on duoneb inhalers. 7. Anxiety, depression and bipolar disorder on ziprasidone and duloxetine; these are on hold o/a of metabolic encephalopathy 8. Seizure disorder: on Keppra 9. History of CVA: stable. ON plavix. 10. History of valvular heart disease: ? mitral valve prolapse. Stable DVT prophylaxis: lovenox Disposition: awaiting placement Code Visit Inpatient E&M: 16827 Subs Hosp L2
[2018-12-03] MEDS: Donepezil HCl 10 MG Tablet PO (09:09)
[2018-12-03] MEDS: Memantine Hydrochloride 10 MG Tablet PO ×2 (09:09→20:59)
[2018-12-03] MEDS: Erythromycin Base 1 OPTH.TUBE 1 APPLIC EACH EYE ×3 (09:10→20:59)
[2018-12-03] MEDS: Losartan Potassium 25 MG Tablet PO (09:10)
[2018-12-03] MEDS: Calcium Carbonate 500 MG Tablet PO (09:10)
[2018-12-03] MEDS: Clopidogrel Bisulfate 75 MG Tablet PO (09:10)
[2018-12-03] MEDS: DULoxetine Hcl 30 MG Capsule PO ×2 (09:10→20:59)
[2018-12-03] MEDS: levETIRAcetam 500 MG Tablet PO ×2 (09:10→20:59)
[2018-12-03] MEDS: Acetaminophen 325 MG Tablet 650 MG PO (15:16)
[2018-12-03] MEDS: OLANZapine 10 MG Tablet PO (20:59)
[2018-12-03] MEDS: Citalopram 20 MG Tablet PO (21:00)
[2018-12-04] VITALS (9 sets, daily range): BP systolic 102–148; BP diastolic 68–84; PULSE 71–99; RESP 16–20; TEMP 36.5–37.1; O2SAT 93–97
[2018-12-04] MEDS: Enoxaparin 40 MG/0.4 ML Syringe SC (05:07)
[2018-12-04] MEDS: Budesonide Respules 0.5 MG/2 ML AMPUL.NEB. INHALATION ×2 (06:46→18:37)
[2018-12-04] MEDS: Albuterol 2.5 MG/3 ML VIAL.NEB. INHALATION ×3 (06:46→18:37)
[2018-12-04] MEDS: Donepezil HCl 10 MG Tablet PO (09:30)
[2018-12-04] MEDS: levETIRAcetam 500 MG Tablet PO ×2 (09:31→21:39)
[2018-12-04] MEDS: DULoxetine Hcl 30 MG Capsule PO ×2 (09:31→21:39)
[2018-12-04] MEDS: Losartan Potassium 25 MG Tablet PO (09:31)
[2018-12-04] MEDS: Erythromycin Base 1 OPTH.TUBE 1 APPLIC EACH EYE ×3 (09:31→21:44)
[2018-12-04] MEDS: Calcium Carbonate 500 MG Tablet PO (09:32)
[2018-12-04] MEDS: Memantine Hydrochloride 10 MG Tablet PO ×2 (09:32→21:43)
[2018-12-04] MEDS: Clopidogrel Bisulfate 75 MG Tablet PO (09:32)
--- NOTE | 2018-12-04 09:48 | CASEMGMT ---
Social Work Note SW faxed updated clinicals to [facility]. Plan: [facility] pending pre-cert and categorical determination Hannah Lam [employer], [employer]
--- NOTE | 2018-12-04 10:40 | PN_ITS ---
Patient Problems: Active and Suspected Problems History of dementia (Acute) History of coronary artery disease (Acute) Falls frequently (Acute) Closed fracture of right proximal humerus (Acute) Dementia (Acute) History of stroke (Acute) History of seizures (Acute) Subjective: No issues overnight, still awaiting placement, there is been difficulty getting in touch with his family in terms of approval of placement. Also because he has had psychiatric admissions placement will be challenging Vitals/I&O's: Vital Signs Temp Pulse Resp BP Pulse Ox 98.4 F 99 20 H 120/84 H 93 12/04/18 07:50 12/04/18 07:50 12/04/18 07:50 12/04/18 07:50 12/04/18 07:50 Oxygen Flow Rate (L/min) 2 Oxygen Delivery Method Room Air Weight: 188 lb 11.451 oz Body Mass Index (BMI) 32.3 Finger Stick Blood Glucose 122 Intake and Output for Last 24 Hours 12/02/18 12/03/18 12/04/18 23:59 23:59 23:59 Intake Total 630 / 750 940 / 940 300 / 300 Balance 630 / 750 940 / 940 300 / 300 General: Alert, Oriented x3, Cooperative, No apparent distress HEENT: Atraumatic, PERRLA, EOMI, Normocephalic Neck: Supple, No JVD Lungs: Clear to auscultation, Normal air movement, No rhonchi, No wheeze, No rales Cardiovascular: Regular rate, Regular Rhythm, Normal S1, Normal S2, No murmurs Abdomen: Soft, Non Tender, Non-Distended, No Hepato-splenomegaly Extremities: No edema, Capillary Refill Less than 3 Seconds Skin: No rashes, No breakdown Neurological: Neuro grossly intact, Sensory exam intact to light touch and pain Psych/Mental Status: Normal Affect, Appropriate Current Medications Acetaminophen (Tylenol) 650 mg PO Q6H PRN PRN PRN Reason: Non-cardiac pain (mod-severe) Last Admin: 12/03/18 15:16 Dose: 650 mg Documented by: Al Hydroxide/Mg Hydroxide (Mylanta Ii) 15 - 30 ml PO Q4H PRN PRN PRN Reason: INDIGESTION Albuterol Sulfate (Ventolin Aerosols) 2.5 mg INHALATION Q2H PRN PRN PRN Reason: dyspnea, wheezing Last Admin: 11/30/18 15:00 Dose: 2.5 mg Documented by: Albuterol Sulfate (Ventolin Aerosols) 2.5 mg INHALATION Q6HWA.RT [facility] Last Admin: 12/04/18 06:46 Dose: 2.5 mg Documented by: Budesonide (Pulmicort Aerosol) 0.5 mg INHALATION Q12H.RT [facility] Last Admin: 12/04/18 06:46 Dose: 0.5 mg Documented by: Calcium Carbonate (Tums) 500 mg PO DAILY [facility] Last Admin: 12/04/18 09:32 Dose: 500 mg Documented by: Citalopram Hydrobromide (Celexa) 20 mg PO QHS [facility] Last Admin: 12/03/18 21:00 Dose: 20 mg Documented by: Clopidogrel Bisulfate (Plavix) 75 mg PO DAILY [facility] Last Admin: 12/04/18 09:32 Dose: 75 mg Documented by: Donepezil HCl (Aricept) 10 mg PO DAILY [facility] Last Admin: 12/04/18 09:30 Dose: 10 mg Documented by: Duloxetine HCl (Cymbalta) 30 mg PO BID [facility] Last Admin: 12/04/18 09:31 Dose: 30 mg Documented by: Enoxaparin Sodium (Lovenox) 40 mg SC DAILY@0600 [facility] Last Admin: 12/04/18 05:07 Dose: 40 mg Documented by: Erythromycin () 1 applic EACH EYE 4X/DAY [facility] Last Admin: 12/04/18 09:31 Dose: 1 applicatio Documented by: Hydralazine HCl (Apresoline Iv) 10 mg IV Q4H PRN PRN PRN Reason: SBP > 160 Sodium Chloride () 250 mls @ 15 mls/hr IV .[id number] PRN PRN Reason: SALINE FLUSH Levetiracetam (Keppra Tablet) 500 mg PO BID [facility] Last Admin: 12/04/18 09:31 Dose: 500 mg Documented by: Losartan Potassium (Cozaar) 25 mg PO DAILY [facility] Last Admin: 12/04/18 09:31 Dose: 25 mg Documented by: Magnesium Hydroxide (Milk Of Magnesia) 30 ml PO DAILY PRN PRN Reason: Constipation Memantine (Namenda) 10 mg PO BID [facility] Last Admin: 12/04/18 09:32 Dose: 10 mg Documented by: Morphine Sulfate () 1 - 2 mg IV Q4H PRN PRN PRN Reason: PAIN Nitroglycerin (Nitrostat) 0.4 mg SUBLINGUAL Q5M PRN PRN Reason: CARDIAC/CHEST PAIN Nutritional Formula (Lactose Free) (Ensure Enlive) 120 ml PO 4X/DAY [facility] Last Admin: 12/04/18 09:31 Dose: 120 ml Documented by: Olanzapine (Zyprexa) 10 mg PO QHS [facility] Last Admin: 12/03/18 20:59 Dose: 10 mg Documented by: Ondansetron HCl (Zofran) 4 mg IV Q8H PRN PRN PRN Reason: NAUSEA/VOMITING Promethazine HCl (Phenergan Oral Solution (6.25 Mg/5 Ml)) 12.5 mg PO Q6H PRN PRN PRN Reason: COUGH Psyllium Hydrophilic Mucilloid (Metamucil) 1 packet PO DAILY PRN PRN PRN Reason: Constipation Senna/Docusate Sodium (Senokot-S, Kristina-Colace) 2 tablet PO BID PRN PRN PRN Reason: Constipation Sodium Chloride () 10 - 40 ml IV UD PRN PRN Reason: SALINE FLUSH Last Admin: 12/01/18 22:06 Dose: 10 ml Documented by: Medical Necessity - Tobacco Use Smoking Status: Former smoker Tobacco Use: Secondhand Assessment/Plan All Active Problems History of dementia (Acute) History of coronary artery disease (Acute) Falls frequently (Acute) Closed fracture of right proximal humerus (Acute) Dementia (Acute) History of stroke (Acute) History of seizures (Acute) 1. Right upper humeral fracture due to mechanical fall/debility secondary to dementia and mechanical fall -Fracture is nonoperative continue with right upper extremity sling -PT/OT -Fall precautions -We will attempt placement for rehab however he has had 2 previous psychiatric stays and therefore the will likely delay his admission 2. Metabolic encephalopathy secondary to polypharmacy which has resolved/dementia with behavioral disturbance/anxiety/depression/bipolar disorder -Metabolic encephalopathy resolved, will continue with his Zyprexa, Celexa, Cymbalta. It appears that at home he was on 2 antipsychotics, will hold the ziprasidone -Continue with his Aricept and amantadine -LFTs on admission were normal as were all electrolytes 3. COPD -Not currently in exacerbation -Continue with his home inhalers 4. Seizure disorder -Stable -Continue with Keppra DVT: Lovenox Code Visit OBSV E&M: 72406 Subsequent observation care L2
--- NOTE | 2018-12-04 15:00 | CASEMGMT ---
Addendum entered by Hannah Lam 12/04/18 17:47: AILYN received message from Rita at [facility] stating PAS/RR needs fixed on a few sections and requests that this worker calls either [facility] or [facility] tomorrow ([phone]) so changes can be corrected. SW to call [facility] tomorrow and make changes to PAS/RR. AILYN did attempt to call pt's brother Marino and and sister in law to update on SNF status but no answer and this worker is not able to leave voicemails. Original Note: Social Work Note AILYN received call from Rodo at [facility] stating pre-cert has been obtained. AILYN informed Rodo that this worker is going to submit for categorical determination but since it is 3:00pm, it is unlikely that it will be received today. Rodo states understanding. AILYN faxed PAS/RR and H+P to Misa Gallegos at [facility]. AILYN placed a call to Misa Gallegos and left her a message regarding categorical determination. Plan: [facility] pending categorical determination Hannah Lam MICROBIOLOGY ANALYST, [employer]
[2018-12-04] MEDS: Citalopram 20 MG Tablet PO (21:39)
[2018-12-04] MEDS: OLANZapine 10 MG Tablet PO (21:43)
[2018-12-05] VITALS (9 sets, daily range): BP systolic 111–149; BP diastolic 56–85; PULSE 78–97; RESP 16–20; TEMP 36.6–37.1; O2SAT 92–98
[2018-12-05] MEDS: Enoxaparin 40 MG/0.4 ML Syringe SC (05:14)
[2018-12-05] MEDS: 0.9% NaCl Peripheral Flush Adult/Peds IV ×3 (05:52→06:12)
[2018-12-05] MEDS: Budesonide Respules 0.5 MG/2 ML AMPUL.NEB. INHALATION ×2 (06:50→19:00)
[2018-12-05] MEDS: Albuterol 2.5 MG/3 ML VIAL.NEB. INHALATION ×3 (06:50→19:00)
--- NOTE | 2018-12-05 08:41 | PN_ITS ---
Patient Problems: Active and Suspected Problems Closed fracture of right proximal humerus (Acute) Subjective: Chief complaint: Follow-up after admission for acute traumatic nondisplaced proximal right humeral fracture, physical debility, functional decline. Patient seen and examined. No acute events overnight. Nursing staff reported that patient has been on his bed most of his time, not ambulating. Patient denied any pain but he complained that he cannot move his right upper arm. He denies chest pain or shortness of breath. His vital signs are stable. - Physical Exam General: Alert, Cooperative, No apparent distress, - HEENT: Atraumatic, PERRLA, EOMI, Normocephalic Oral: Moist Mucosa, No Gingival or Mucosal Lesions/ Ulcerations Neck: Supple, No JVD, Negative Carotid Bruits, Trachea Midline, Thyroid Normal Size and Texture Lungs: Clear to auscultation, Normal air movement, No rhonchi, No wheeze, No rales, Diminished Cardiovascular: Regular rate, Regular Rhythm, Normal S1, Normal S2, PMI Normal Abdomen: Bowel Sounds Present, Soft, Non Tender, Non-Distended, No Hepato- splenomegaly Extremities: No clubbing, No cyanosis, Edema - Trace edema. Skin: No rashes, No breakdown Lymphatic: No Cervical, Supraclavicular, or Inguinal Adenopathy Neurological: Cranial nerves II-XII grossly intact, Motor Exam 5/5 strength throughout Psych/Mental Status: Appropriate, Flat Affect Vital Signs Temp Pulse Resp BP Pulse Ox 98.7 F 88 18 111/71 93 12/05/18 03:34 12/05/18 07:00 12/05/18 07:00 12/05/18 03:34 12/05/18 07:41 Oxygen Flow Rate (L/min) 2 Oxygen Delivery Method Room Air Weight: 188 lb 11.451 oz Body Mass Index (BMI) 32.3 Finger Stick Blood Glucose 122 Intake and Output for Last 24 Hours 12/03/18 12/04/18 12/05/18 23:59 23:59 23:59 Intake Total 940 / 940 300 / 300 200 / 200 Balance 940 / 940 300 / 300 200 / 200 Medical Necessity - Tobacco Use Smoking Status: Former smoker Assessment/Plan All Active Problems Closed fracture of right proximal humerus (Acute) This is a 63 years old male patient presented to the emergency room because of mechanical fall and right upper arm pain, found to have nondisplaced fracture of the surgical neck of the right humerus, he has been having issues with difficulty ambulating and frequent falls, functional decline as well as dementia with behavioral disturbances. 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 Orthopedic surgery consulted, reviewed the x-ray and recommended arm sling as well as follow-up with orthopedic surgery as outpatient in 10 to 14 days. Patient is on IV morphine PRN for pain. His vital signs are stable. Routine blood work from November 29, 2018 reviewed and was unremarkable. Awaiting placement to long term facility. #2 physical debility/functional decline: Patient with frequent falls, has dementia and not able to care for himself. He was seen by PT OT and recommended placement to long term facility. Plan as above. #3 dementia with behavioral disturbances: At this time, patient seemed stable, oriented to self, knows his full name and date of as well as location. Continue Aricept and Namenda. #4 anxiety/depression/bipolar disorder: Stable at this time, continue Celexa, Cymbalta olanzapine. #5 COPD: Clinically stable, pulse ox is maintained on room air. He is on albuterol as needed as well as [id number] and also on Entocort twice daily. #6 seizure disorder: Stable, continue Keppra. #7 hypertension: Blood pressure stable, continue losartan and IV hydralazine PRN. #8 history of CVA: Stable, continue Plavix. #9 DVT prophylaxis: Subcu heparin. This note was generated with [employer] dictation software. It may contain incorrect words, spelling, and punctuation that were not noted in checking the note before signing. Code Visit OBSV E&M: 04172 Subsequent observation care L2
--- NOTE | 2018-12-05 09:00 | RAD_ITS ---
STUDY: X-RAY - RIGHT HUMERUS REASON FOR EXAM: Male, 63 years old. Pain. TECHNIQUE: 2 view(s) of the humerus. COMPARISON: None. FINDINGS: Nondisplaced transverse fracture of the surgical neck of the humerus. 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 Soft tissue swelling. RAD/Humerus min 2 Views IMPRESSION: Nondisplaced fracture of the surgical neck of the humerus. 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 Electronically Signed: Parveen Baptiste, at 11:11 EDT , Service support ,
[2018-12-05] MEDS: DULoxetine Hcl 30 MG Capsule PO ×2 (09:51→22:03)
[2018-12-05] MEDS: levETIRAcetam 500 MG Tablet PO ×2 (09:51→22:04)
[2018-12-05] MEDS: Clopidogrel Bisulfate 75 MG Tablet PO (09:52)
[2018-12-05] MEDS: Memantine Hydrochloride 10 MG Tablet PO ×2 (09:52→22:05)
[2018-12-05] MEDS: Erythromycin Base 1 OPTH.TUBE 1 APPLIC EACH EYE ×2 (09:52→22:07)
[2018-12-05] MEDS: Calcium Carbonate 500 MG Tablet PO (09:52)
[2018-12-05] MEDS: Donepezil HCl 10 MG Tablet PO (09:53)
[2018-12-05] MEDS: Losartan Potassium 25 MG Tablet PO (09:53)
--- NOTE | 2018-12-05 10:04 | CASEMGMT ---
Addendum entered by Hannah Lam 12/05/18 16:50: AILYN placed a call to Haven at [facility] and asked about response from [facility]. Haven states Felicitabeata has been taking 3-5 days to responds to request and she doesn't anticipate getting a response today or tomorrow. Original Note: Social Work Note AILYN made changes on PAS/RR and faxed to [facility]. AILYN placed a call to Haven at [facility] ([phone]) and updated her that the fixed PAS/RR has been sent and to submit for categorical determination. Haven states she will submit to [facility] today. Hannah Lam AUCTIONEER ART, CONTENT MANAGEMENT SPECIALIST
--- NOTE | 2018-12-05 11:30 | PCM.TXEXTCAR ---
- Diet 11/28/18 19:42 Diet: Cardiac/Low Cholesterol Food consistency:: Regular Liquid Consistency:: Regular/Thin - Routine Orders/Code Status Code Status: Full Code - Wound(s) Rt forehead Wound Type: Abrasion - Suggestions for Active Care Change Position every (hours): 3 Hours to sit in a chair: 2 Times a day to sit in chair: 3 - Therapies Weight Bearing: Weight bearing as tolerated Physical Therapy: Eval and Treat Occupational Therapy: Eval and Treat - Allergies/Procedures Done in Hospital Allergies/Adverse Reactions: Allergies venom-honey bee [bee venom (honey bee)] Allergy (Verified 11/28/18 16:04) Anaphylaxis - Type of Care/Length of Stay Estimated LOS: Convalescent Care Less Than 30 days Type of Care Needed: Skilled Rehab Potential: Fair Prognosis: Fair - Additional Orders/Day of Discharge H&P will serve as current which was dated: 11/28/18 Day of Discharge: 12/05/18 - Dietary and Speech Recommendations Dietitian Recommendations/Changes: Please reweigh as able. Continue cardiac diet with ensure enlive on medpass. - Follow Up Care Primary Care Physician: Emerson Jara MD [Primary Care Provider] - Please follow up with your Primary Care Physician in: 1-2 weeks. Please Follow Up With: Juancarlos Acosta DO When: 10-14 days
[2018-12-05] MEDS: Citalopram 20 MG Tablet PO (22:03)
[2018-12-05] MEDS: OLANZapine 10 MG Tablet PO (22:05)
[2018-12-06] VITALS (8 sets, daily range): BP systolic 128–147; BP diastolic 70–89; PULSE 80–92; RESP 14–20; TEMP 36.8–36.9; O2SAT 94–99
[2018-12-06] MEDS: Enoxaparin 40 MG/0.4 ML Syringe SC (05:58)
[2018-12-06] MEDS: Budesonide Respules 0.5 MG/2 ML AMPUL.NEB. INHALATION ×2 (06:17→19:31)
[2018-12-06] MEDS: Albuterol 2.5 MG/3 ML VIAL.NEB. INHALATION ×2 (06:17→19:31)
[2018-12-06] MEDS: Erythromycin Base 1 OPTH.TUBE 1 APPLIC EACH EYE ×4 (09:24→22:12)
[2018-12-06] MEDS: Calcium Carbonate 500 MG Tablet PO (09:25)
[2018-12-06] MEDS: Memantine Hydrochloride 10 MG Tablet PO ×2 (09:25→22:11)
[2018-12-06] MEDS: Clopidogrel Bisulfate 75 MG Tablet PO (09:25)
[2018-12-06] MEDS: Donepezil HCl 10 MG Tablet PO (09:25)
[2018-12-06] MEDS: DULoxetine Hcl 30 MG Capsule PO ×2 (09:25→22:11)
[2018-12-06] MEDS: levETIRAcetam 500 MG Tablet PO ×2 (09:25→22:11)
[2018-12-06] MEDS: Losartan Potassium 25 MG Tablet PO (09:25)
--- NOTE | 2018-12-06 09:27 | CASEMGMT ---
Addendum entered by Hannah Lam 12/06/18 14:11: SW attempted to call [facility] ([phone] ext. [phone]) but their telephone system is down. SW did email the help desk to ask for update on pt's level of care. SW placed a call to Callie at [facility] and updated her that this worker is still waiting for LOC. Callie states that if pt doesn't discharge to SNF today then pt's pre-cert will have to be resubmitted. Original Note: Social Work Note SW placed a call to Misa Gallegos at [facility] and left her a message confirming that it is a categorical determination that this worker needs for pt to go to SNF and asked if there was a direct number for [facility] for this worker to call. SW waiting for call back for update. Hannah Lam DRIVER TRAINEE, COLOR STRIPPER
--- NOTE | 2018-12-06 12:31 | PN_ITS ---
Patient Problems: Active and Suspected Problems Closed fracture of right proximal humerus (Acute) Subjective: Chief complaint: Follow-up after admission for acute traumatic nondisplaced proximal right humeral fracture, physical debility, functional decline. Patient seen and examined. No acute events overnight. Patient remained the same, refusing to ambulate. He denies any right arm pain. His vital signs are stable. - Physical Exam General: Alert, Cooperative, No apparent distress, Well nourished HEENT: Atraumatic, PERRLA, EOMI, Normocephalic Oral: Moist Mucosa, No Gingival or Mucosal Lesions/ Ulcerations Neck: Supple, No JVD, Negative Carotid Bruits, Trachea Midline, Thyroid Normal Size and Texture Lungs: Clear to auscultation, No rhonchi, No wheeze, No rales, Rhonchi Cardiovascular: Regular rate, Regular Rhythm, Normal S1, Normal S2, PMI Normal Abdomen: Bowel Sounds Present, Soft, Non Tender, Non-Distended, No Hepato-splen omegaly Extremities: No clubbing, No cyanosis, Edema - Trace edema. Skin: No rashes, No breakdown Lymphatic: No Cervical, Supraclavicular, or Inguinal Adenopathy Neurological: Cranial nerves II-XII grossly intact, Neuro grossly intact Psych/Mental Status: Flat Affect Vital Signs Temp Pulse Resp BP Pulse Ox 98.3 F 80 20 H 131/76 H 94 12/06/18 08:46 12/06/18 08:50 12/06/18 08:46 12/06/18 08:46 12/06/18 08:46 Oxygen Flow Rate (L/min) 2 Oxygen Delivery Method Nasal Cannula Weight: 188 lb 11.451 oz Body Mass Index (BMI) 32.3 Finger Stick Blood Glucose 122 Intake and Output for Last 24 Hours 12/04/18 12/05/18 12/06/18 23:59 23:59 23:59 Intake Total 300 / 300 1550 / 1550 Balance 300 / 300 1550 / 1550 Medical Necessity - Tobacco Use Smoking Status: Former smoker Tobacco Use: Secondhand Assessment/Plan All Active Problems Closed fracture of right proximal humerus (Acute) This is a 63 years old male patient presented to the emergency room because of mechanical fall and right upper arm pain, found to have nondisplaced fracture of the surgical neck of the right humerus, he has been having issues with difficulty ambulating and frequent falls, functional decline as well as dementia with behavioral disturbances. #1 acute traumatic nondisplaced fracture of the surgical neck of the right humerus: He is on IV morphine and OxyIR PRN for pain. On arm sling and Abdirahman wraps. Orthopedic surgery consulted and recommended no need for surgical repair. 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 We are awaiting insurance approval for placement to assisted facility. #2 physical debility/functional decline: Patient with frequent falls, has dementia and not able to care for himself. He was seen by PT OT and recommended placement to assisted facility. Plan as above. #3 dementia with behavioral disturbances: At this time, patient seemed stable, oriented to self, knows his full name and date of as well as location. Continue Aricept and Namenda. #4 anxiety/depression/bipolar disorder: Stable at this time, continue Celexa, Cymbalta olanzapine. #5 COPD: Clinically stable, pulse ox is maintained on 2 L of oxygen. He is on albuterol as needed as well as [id number] and also on Pulmicort twice daily. #6 seizure disorder: Stable, continue Keppra. #7 hypertension: Blood pressure stable, continue losartan and IV hydralazine PRN. #8 history of CVA: Stable, continue Plavix. #9 DVT prophylaxis: Subcu heparin. This note was generated with [employer] dictation software. It may contain incorrect words, spelling, and punctuation that were not noted in checking the note before signing. Code Visit OBSV E&M: 17776 Subsequent observation care L2
[2018-12-06] MEDS: Acetaminophen 325 MG Tablet 650 MG PO (18:15)
[2018-12-06] MEDS: Citalopram 20 MG Tablet PO (22:11)
[2018-12-06] MEDS: OLANZapine 10 MG Tablet PO (22:11)
[2018-12-07] VITALS (8 sets, daily range): BP systolic 117–142; BP diastolic 52–81; PULSE 63–94; RESP 16–20; TEMP 36.7–37.1; O2SAT 91–96
[2018-12-07] MEDS: Enoxaparin 40 MG/0.4 ML Syringe SC (06:14)
[2018-12-07] MEDS: Albuterol 2.5 MG/3 ML VIAL.NEB. INHALATION ×2 (07:22→19:09)
[2018-12-07] MEDS: Budesonide Respules 0.5 MG/2 ML AMPUL.NEB. INHALATION ×2 (07:23→19:09)
[2018-12-07] MEDS: Donepezil HCl 10 MG Tablet PO (09:33)
[2018-12-07] MEDS: Losartan Potassium 25 MG Tablet PO (09:33)
[2018-12-07] MEDS: levETIRAcetam 500 MG Tablet PO ×2 (09:34→23:27)
[2018-12-07] MEDS: DULoxetine Hcl 30 MG Capsule PO ×2 (09:34→23:26)
[2018-12-07] MEDS: Erythromycin Base 1 OPTH.TUBE 1 APPLIC EACH EYE ×4 (09:34→23:29)
[2018-12-07] MEDS: Memantine Hydrochloride 10 MG Tablet PO ×2 (09:34→23:27)
[2018-12-07] MEDS: Clopidogrel Bisulfate 75 MG Tablet PO (09:35)
[2018-12-07] MEDS: Calcium Carbonate 500 MG Tablet PO (09:35)
--- NOTE | 2018-12-07 11:53 | CASEMGMT ---
Addendum entered by Hannah Lam 12/07/18 16:15: SW updated Callie and Rodo at [facility] that this worker is still waiting for categorical determination. Pre-cert is also still pending. Addendum entered by Hannah Lam 12/07/18 11:57: SW attempted to call pt's brother Marino to update and no answer and voicemail is still full. SW attempted to call pt's sister in law and there was no answer and unable to leave message. Original Note: Social Work Note SW placed a call to [facility]. [facility] confirms they received level of care and are currently working on it. SW asked if there was a way to expedite the request as pt has been at [facility] for 9 days and the Level of Care is the only thing holding up pt's discharge. [facility] states they will expedite request but could not tell this worker when the request would be completed. SW faxed updated clinicals to [facility] as pre-cert has been and will need to be resubmitted. AILYN placed a call to Callie at [facility] and updated her that pre-cert will need to be resubmitted and to resubmit pre-cert today. Plan: [facility] pending pre-cert and categorical determination Hannah Lam FIBER LOCKING SUPERVISOR, MANUFACTURING ENGINEERING PROFESSOR
--- NOTE | 2018-12-07 12:25 | PN_ITS ---
Patient Problems: Active and Suspected Problems Closed fracture of right proximal humerus (Acute) Subjective: Chief complaint: Follow-up after admission for acute traumatic nondisplaced proximal right humeral fracture, physical debility, functional decline. Patient seen and examined. No acute events overnight. Patient remains in bed, refusing to ambulate. Flat affect and answers questions on short sentences. He denies any pain. No chest pain or shortness of breath. Denies abdominal pain, nausea vomiting. His vital signs are stable. - Physical Exam General: Alert, Cooperative, No apparent distress HEENT: Atraumatic, PERRLA, EOMI, Normocephalic Oral: Moist Mucosa, No Gingival or Mucosal Lesions/ Ulcerations Neck: Supple, No JVD, Negative Carotid Bruits, Trachea Midline, Thyroid Normal Size and Texture Lungs: Normal air movement, No wheeze, No rales, Diminished, Rhonchi Cardiovascular: Regular rate, Regular Rhythm, Normal S1, Normal S2, PMI Normal Abdomen: Bowel Sounds Present, Soft, Non Tender, Non-Distended, No Hepato- splenomegaly Extremities: No clubbing, No cyanosis, Edema - Trace edema. Skin: No rashes, No breakdown Lymphatic: No Cervical, Supraclavicular, or Inguinal Adenopathy Neurological: Cranial nerves II-XII grossly intact, Neuro grossly intact Psych/Mental Status: Flat Affect Vital Signs Temp Pulse Resp BP Pulse Ox 98.4 F 86 18 121/52 H 94 12/07/18 03:37 12/07/18 09:00 12/07/18 09:00 12/07/18 03:37 12/07/18 09:00 Oxygen Flow Rate (L/min) 2 Oxygen Delivery Method Nasal Cannula Weight: 188 lb 11.451 oz Body Mass Index (BMI) 32.3 Finger Stick Blood Glucose 122 Intake and Output for Last 24 Hours 12/05/18 12/06/18 12/07/18 23:59 23:59 23:59 Intake Total 1550 / 1550 50 / 50 50 / 50 Balance 1550 / 1550 50 / 50 50 / 50 Medical Necessity - Tobacco Use Smoking Status: Former smoker Tobacco Use: Secondhand Assessment/Plan All Active Problems Closed fracture of right proximal humerus (Acute) This is a 63 years old male patient presented to the emergency room because of mechanical fall and right upper arm pain, found to have nondisplaced fracture of the surgical neck of the right humerus, he has been having issues with di fficulty ambulating and frequent falls, functional decline as well as dementia with behavioral disturbances. #1 acute traumatic nondisplaced fracture of the surgical neck of the right humerus: Remained on IV morphine and OxyIR PRN for pain. His pain is controlled. On arm sling and Abdirahman wraps. Orthopedic surgery consulted and recommended no need for surgical repair. 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 We are still awaiting insurance approval for placement to [facility] facility. #2 physical debility/functional decline: Patient with frequent falls, has dementia and not able to care for himself. He was seen by PT OT and recommended placement to [facility] facility. Plan as above. #3 dementia with behavioral disturbances: At this time, patient seemed stable, oriented to self, knows his full name and date of as well as location. Continue Aricept and Namenda. #4 anxiety/depression/bipolar disorder: Stable at this time, continue Celexa, Cymbalta olanzapine. #5 COPD: Clinically stable, pulse ox is maintained on 2 L of oxygen. He is on albuterol as needed as well as [id number] and also on Pulmicort twice daily. #6 seizure disorder: Stable, continue Keppra. #7 hypertension: Blood pressure stable, continue losartan and IV hydralazine PRN. #8 history of CVA: Stable, continue Plavix. #9 DVT prophylaxis: Subcu heparin. This note was generated with [employer] dictation software. It may contain incorrect words, spelling, and punctuation that were not noted in checking the note before signing. Code Visit OBSV E&M: 71782 Subsequent observation care L2
[2018-12-07] MEDS: oxyCODONE 5 MG Tablet PO (20:19)
[2018-12-07] MEDS: Citalopram 20 MG Tablet PO (23:26)
[2018-12-07] MEDS: OLANZapine 10 MG Tablet PO (23:28)
[2018-12-08 02:30] VITALS: BP 146/71; PULSE 71; RESP 16; TEMP 36.7; O2SAT 96
[2018-12-08] MEDS: Enoxaparin 40 MG/0.4 ML Syringe SC (05:54)
[2018-12-08] MEDS: DULoxetine Hcl 30 MG Capsule PO ×2 (09:13→21:06)
[2018-12-08] MEDS: Erythromycin Base 1 OPTH.TUBE 1 APPLIC EACH EYE ×4 (09:13→21:07)
[2018-12-08] MEDS: Calcium Carbonate 500 MG Tablet PO (09:13)
[2018-12-08] MEDS: Clopidogrel Bisulfate 75 MG Tablet PO (09:13)
[2018-12-08] MEDS: Donepezil HCl 10 MG Tablet PO (09:13)
[2018-12-08] MEDS: Losartan Potassium 25 MG Tablet PO (09:13)
[2018-12-08] MEDS: Memantine Hydrochloride 10 MG Tablet PO ×2 (09:13→21:07)
[2018-12-08] MEDS: levETIRAcetam 500 MG Tablet PO ×2 (09:13→21:06)
[2018-12-08 10:35] VITALS: BP 141/81; PULSE 79; RESP 16; TEMP 36.9; O2SAT 91
--- NOTE | 2018-12-08 10:38 | PN_ITS ---
Patient Problems: Active and Suspected Problems Closed fracture of right proximal humerus (Acute) Subjective: Chief complaint: Follow-up after admission for acute traumatic nondisplaced proximal right humeral fracture, physical debility, functional decline. Patient seen and examined. No acute events overnight. This morning, he is sitting in his chair, trying to eat his breakfast. He denied arm pain. Denies chest pain or shortness of breath. His vital signs are stable. - Physical Exam General: Alert, Cooperative, No apparent distress HEENT: Atraumatic, PERRLA, EOMI, Normocephalic Oral: Moist Mucosa, No Gingival or Mucosal Lesions/ Ulcerations Neck: Supple, No JVD, Negative Carotid Bruits, Trachea Midline, Thyroid Normal Size and Texture Lungs: Clear to auscultation, Normal air movement, No rhonchi, No wheeze, No rales, Diminished Cardiovascular: Regular rate, Regular Rhythm, Normal S1, Normal S2, PMI Normal Abdomen: Bowel Sounds Present, Soft, Non Tender, Non-Distended, No Hepato- splenomegaly Extremities: No clubbing, No cyanosis, No edema Skin: No rashes, No breakdown Lymphatic: No Cervical, Supraclavicular, or Inguinal Adenopathy Neurological: Cranial nerves II-XII grossly intact, Neuro grossly intact Psych/Mental Status: Flat Affect Vital Signs Temp Pulse Resp BP Pulse Ox 98.1 F 71 16 146/71 H 96 12/08/18 02:30 12/08/18 02:30 12/08/18 02:30 12/08/18 02:30 12/08/18 02:30 Oxygen Flow Rate (L/min) 1 Oxygen Delivery Method Room Air Weight: 188 lb 11.451 oz Body Mass Index (BMI) 32.3 Finger Stick Blood Glucose 122 Intake and Output for Last 24 Hours 12/06/18 12/07/18 12/08/18 23:59 23:59 23:59 Intake Total 50 / 50 600 / 600 300 / 300 Balance 50 / 50 600 / 600 300 / 300 Medical Necessity - Tobacco Use Smoking Status: Former smoker Tobacco Use: Secondhand Assessment/Plan All Active Problems Closed fracture of right proximal humerus (Acute) This is a 63 years old male patient presented to the emergency room because of mechanical fall and right upper arm pain, found to have nondisplaced fracture of the surgical neck of the right humerus, he has been having issues with difficulty ambulating and frequent falls, functional decline as well as dementia with behavioral disturbances. #1 acute traumatic nondisplaced fracture of the surgical neck of the right humerus: Pain is well controlled. He is on IV morphine and OxyIR PRN for pain. His vital signs are stable. On arm sling and Abdirahman wraps. Orthopedic surgery consulted and recommended no need for surgical repair. We are awaiting psychiatric evaluation to be able to go to group home facility. #2 physical debility/functional decline: Patient with frequent falls, has dementia and not able to care for himself. He was seen by PT OT and recommended placement to group home facility. Plan as above. #3 dementia with behavioral disturbances: At this time, patient seemed stable, oriented to self, flat affect, flat face. Continue Aricept and Namenda. #4 anxiety/depression/bipolar disorder: Stable at this time, continue Celexa, Cymbalta olanzapine. #5 COPD: Clinically stable, pulse ox is maintained on room air this morning. He is on albuterol as needed as well as [id number] and also on Pulmicort twice daily. #6 seizure disorder: Stable, continue Keppra. #7 hypertension: Blood pressure stable, continue losartan and IV hydralazine PRN. #8 history of CVA: Stable, continue Plavix. #9 DVT prophylaxis: Subcu heparin. This note was generated with [employer] dictation software. It may contain incorrect words, spelling, and punctuation that were not noted in checking the note before signing. Code Visit OBSV E&M: 92727 Subsequent observation care L2
[2018-12-08 12:44] VITALS: PULSE 89; RESP 24; O2SAT 96
[2018-12-08] MEDS: Albuterol 2.5 MG/3 ML VIAL.NEB. INHALATION ×2 (12:44→18:56)
--- NOTE | 2018-12-08 14:08 | CASEMGMT ---
Addendum entered by Jolanta Vila 12/08/18 16:28: AILYN spoke with Rodo at [facility] and they have not obtained precert yet. Phone number to [facility] provided and asked Rodo to call [facility] if precert is obtained tonight or tomorrow. Phone call to pt brother and sister in law. No answer from either number. Plan: D/C to [facility] when insurance precert has been obtained. JUNE Miranda Original Note: Social Work Categorical determination received from [facility]. Phone call to Rodo at [facility] and informed. Precert has not yet been obtained. Rodo to call [facility] and check on status. ALIYN will wait on return call from [facility]. d/c to [facility], pending insurance precert. JUNE Miranda
[2018-12-08 14:40] VITALS: BP 141/80; PULSE 81; RESP 16; TEMP 36.9; O2SAT 96
[2018-12-08 18:56] VITALS: PULSE 86; RESP 18
[2018-12-08] MEDS: Budesonide Respules 0.5 MG/2 ML AMPUL.NEB. INHALATION (18:56)
[2018-12-08 20:51] VITALS: BP 140/70; PULSE 91; RESP 20; TEMP 36.5; O2SAT 94
[2018-12-08] MEDS: Citalopram 20 MG Tablet PO (21:06)
[2018-12-08] MEDS: OLANZapine 10 MG Tablet PO (21:07)
[2018-12-09] VITALS (8 sets, daily range): BP systolic 110–136; BP diastolic 72–91; PULSE 75–93; RESP 16–20; TEMP 36.6–37.1; O2SAT 91–98
[2018-12-09] MEDS: Enoxaparin 40 MG/0.4 ML Syringe SC (06:04)
[2018-12-09] MEDS: Budesonide Respules 0.5 MG/2 ML AMPUL.NEB. INHALATION ×2 (06:56→18:49)
[2018-12-09] MEDS: Albuterol 2.5 MG/3 ML VIAL.NEB. INHALATION ×3 (06:57→18:48)
--- NOTE | 2018-12-09 08:34 | PCM.PROGNOTE ---
Patient Problems: Active and Suspected Problems Closed fracture of right proximal humerus (Acute) Subjective: Chief complaint: Follow-up after admission for acute traumatic nondisplaced proximal right humeral fracture, physical debility, functional decline. Patient seen and examined. No acute events overnight. This morning, he was sleeping. He woke up easily. He was able to answer couple of his questions. Denied any right arm pain. Denied chest pain or shortness of breath. Denied abdominal pain, nausea or vomiting. His vital signs are stable. - Physical Exam General: Alert, Oriented x3, Cooperative, No apparent distress HEENT: Atraumatic, PERRLA, EOMI, Normocephalic Oral: Moist Mucosa, No Gingival or Mucosal Lesions/ Ulcerations Neck: Supple, No JVD, Negative Carotid Bruits, Trachea Midline, Thyroid Normal Size and Texture Lungs: Clear to auscultation, Normal air movement, No rhonchi, No wheeze, No rales, Diminished Cardiovascular: Regular rate, Regular Rhythm, Normal S1, Normal S2, PMI Normal Abdomen: Bowel Sounds Present, Soft, Non Tender, Non-Distended, No Hepato-splenomegaly Extremities: No clubbing, No cyanosis, No edema Skin: No rashes, No breakdown Lymphatic: No Cervical, Supraclavicular, or Inguinal Adenopathy Neurological: Cranial nerves II-XII grossly intact, Neuro grossly intact Psych/Mental Status: Flat Affect, Depressed Vital Signs Temp Pulse Resp BP Pulse Ox 98.0 F 75 16 122/79 H 91 12/09/18 04:00 12/09/18 06:57 12/09/18 06:57 12/09/18 04:00 12/09/18 06:57 Oxygen Flow Rate (L/min) 1 Oxygen Delivery Method Room Air Weight: 188 lb 11.451 oz Body Mass Index (BMI) 32.3 Finger Stick Blood Glucose 122 Intake and Output for Last 24 Hours 12/07/18 12/08/18 12/09/18 23:59 23:59 23:59 Intake Total 600 / 600 780 / 1020 340 / 340 Balance 600 / 600 780 / 1020 340 / 340 Medical Necessity - Tobacco Use Smoking Status: Former smoker Tobacco Use: Secondhand Assessment/Plan All Active Problems Closed fracture of right proximal humerus (Acute) This is a 63 years old male patient presented to the emergency room because of mechanical fall and right upper arm pain, found to have nondisplaced fracture of the surgical neck of the right humerus, he has been having issues with difficulty ambulating and frequent falls, functional decline as well as dementia with behavioral disturbances. #1 acute traumatic nondisplaced fracture of the surgical neck of the right humerus: Pain is well controlled. Remained on IV morphine and OxyIR PRN for pain. His vital signs are stable. On arm sling and Abdirahman wraps. Orthopedic surgery consulted and recommended no need for surgical repair. We are still waiting for psychiatric evaluation to be able to go to care home facility. #2 physical debility/functional decline: Patient with frequent falls, has dementia and not able to care for himself. He was seen by PT OT and recommended placement to care home facility. Plan as above. #3 dementia with behavioral disturbances: Patient has been calm, cooperative. Continue Aricept and Namenda. #4 anxiety/depression/bipolar disorder: Stable at this time, continue Celexa, Cymbalta olanzapine. #5 COPD: Clinically stable, pulse ox is 95% on room air. He is on albuterol as needed as well as [id number] and also on Pulmicort twice daily. #6 seizure disorder: Stable, continue Keppra. #7 hypertension: Blood pressure stable, continue losartan and IV hydralazine PRN. #8 history of CVA: Stable, continue Plavix. #9 DVT prophylaxis: Subcu heparin. This note was generated with [employer] dictation software. It may contain incorrect words, spelling, and punctuation that were not noted in checking the note before signing. Code Visit OBSV E&M: 60670 Subsequent observation care L2
[2018-12-09] MEDS: Losartan Potassium 25 MG Tablet PO (10:32)
[2018-12-09] MEDS: Memantine Hydrochloride 10 MG Tablet PO ×2 (10:32→21:48)
[2018-12-09] MEDS: Erythromycin Base 1 OPTH.TUBE 1 APPLIC EACH EYE ×4 (10:32→21:48)
[2018-12-09] MEDS: levETIRAcetam 500 MG Tablet PO ×2 (10:32→21:48)
[2018-12-09] MEDS: DULoxetine Hcl 30 MG Capsule PO ×2 (10:33→21:47)
[2018-12-09] MEDS: Donepezil HCl 10 MG Tablet PO (10:33)
[2018-12-09] MEDS: Clopidogrel Bisulfate 75 MG Tablet PO (10:33)
[2018-12-09] MEDS: Calcium Carbonate 500 MG Tablet PO (10:33)
[2018-12-09] MEDS: Citalopram 20 MG Tablet PO (21:47)
[2018-12-09] MEDS: OLANZapine 10 MG Tablet PO (21:49)
[2018-12-10] VITALS (7 sets, daily range): BP systolic 108–132; BP diastolic 66–83; PULSE 79–92; RESP 16–18; TEMP 36.7–36.9; O2SAT 93–97
[2018-12-10] MEDS: Enoxaparin 40 MG/0.4 ML Syringe SC (05:21)
[2018-12-10] MEDS: Albuterol 2.5 MG/3 ML VIAL.NEB. INHALATION ×3 (06:38→19:43)
[2018-12-10] MEDS: Budesonide Respules 0.5 MG/2 ML AMPUL.NEB. INHALATION ×2 (06:38→19:43)
--- NOTE | 2018-12-10 07:51 | PN_ITS ---
Patient Problems: Active and Suspected Problems Closed fracture of right proximal humerus (Acute) Subjective: Chief complaint: Follow-up after admission for acute traumatic nondisplaced proximal right humeral fracture, physical debility, functional decline. Patient seen and examined. No acute events overnight. Patient denies any complaints. No right upper arm pain. Vital signs are stable. - Physical Exam General: Alert, Cooperative, No apparent distress, Well nourished HEENT: Atraumatic, PERRLA, EOMI, Normocephalic Oral: Moist Mucosa, No Gingival or Mucosal Lesions/ Ulcerations Neck: Supple, No JVD, Negative Carotid Bruits, Trachea Midline, Thyroid Normal Size and Texture Lungs: Clear to auscultation, Normal air movement, No rhonchi, No wheeze, No rales, Diminished Cardiovascular: Regular rate, Regular Rhythm, Normal S1, Normal S2, PMI Normal Abdomen: Bowel Sounds Present, Soft, Non Tender, Non-Distended, No Hepato-splenomegaly Extremities: No clubbing, No cyanosis, No edema Skin: No rashes, No breakdown Lymphatic: No Cervical, Supraclavicular, or Inguinal Adenopathy Neurological: Cranial nerves II-XII grossly intact, Neuro grossly intact Psych/Mental Status: Flat Affect, Depressed Vital Signs Temp Pulse Resp BP Pulse Ox 98.0 F 84 16 132/79 H 93 12/10/18 01:20 12/10/18 06:38 12/10/18 06:38 12/10/18 01:20 12/10/18 06:38 Oxygen Flow Rate (L/min) 1 Oxygen Delivery Method Room Air Weight: 188 lb 11.451 oz Body Mass Index (BMI) 32.3 Finger Stick Blood Glucose 122 Intake and Output for Last 24 Hours 12/08/18 12/09/18 12/10/18 23:59 23:59 23:59 Intake Total 780 / 1020 340 / 460 180 / 180 Balance 780 / 1020 340 / 460 180 / 180 Medical Necessity - Tobacco Use Smoking Status: Former smoker Tobacco Use: Secondhand Assessment/Plan All Active Problems Closed fracture of right proximal humerus (Acute) This is a 63 years old male patient presented to the emergency room because of mechanical fall and right upper arm pain, found to have nondisplaced fracture of the surgical neck of the right humerus, he has been having issues with difficulty ambulating and frequent falls, functional decline as well as dementia with behavioral disturbances. #1 acute traumatic nondisplaced fracture of the surgical neck of the right humerus: Patient has no complaints, no pain. Remained on IV morphine and OxyIR PRN for pain. His vital signs are stable. On arm sling and Abdirahman wraps. Orthopedic surgery consulted and recommended no need for surgical repair. We received the categorical determination from the psychiatric standpoint and we are waiting insurance approval for [facility] to [facility] facility. The first Pre-cert was . #2 physical debility/functional decline: Patient with frequent falls, has selam ia and not able to care for himself. He was seen by PT OT and recommended placement to penitentiary facility. Plan as above. #3 dementia with behavioral disturbances: Patient has been calm, cooperative. Continue Aricept and Namenda. #4 anxiety/depression/bipolar disorder: Stable at this time, continue Celexa, Cymbalta olanzapine. #5 COPD: Clinically stable, pulse ox is 94% on room air. He is on albuterol as needed as well as ctarfr-itc-eohah and also on Pulmicort twice daily. #6 seizure disorder: Stable, continue Keppra. #7 hypertension: Blood pressure stable, continue losartan and IV hydralazine PRN. #8 history of CVA: Stable, continue Plavix. #9 DVT prophylaxis: Subcu heparin. This note was generated with [employer] dictation software. It may contain incorrect words, spelling, and punctuation that were not noted in checking the note before signing. Code Visit OBSV E&M: 93723 Subsequent observation care L2
[2018-12-10] MEDS: Calcium Carbonate 500 MG Tablet PO (11:27)
[2018-12-10] MEDS: Donepezil HCl 10 MG Tablet PO (11:28)
[2018-12-10] MEDS: Erythromycin Base 1 OPTH.TUBE 1 APPLIC EACH EYE ×3 (11:28→22:01)
[2018-12-10] MEDS: levETIRAcetam 500 MG Tablet PO ×2 (11:28→22:01)
[2018-12-10] MEDS: Memantine Hydrochloride 10 MG Tablet PO ×2 (11:28→22:01)
[2018-12-10] MEDS: DULoxetine Hcl 30 MG Capsule PO ×2 (11:28→22:01)
[2018-12-10] MEDS: Clopidogrel Bisulfate 75 MG Tablet PO (11:28)
[2018-12-10] MEDS: Citalopram 20 MG Tablet PO (22:01)
[2018-12-10] MEDS: Acetaminophen 325 MG Tablet 650 MG PO (22:01)
[2018-12-10] MEDS: OLANZapine 10 MG Tablet PO (22:01)
[2018-12-10] MEDS: Senna/Docusate Sodium 1 Tablet 2 TABLET PO (22:49)
[2018-12-11 04:08] VITALS: BP 129/78; PULSE 79; RESP 18; TEMP 36.8; O2SAT 96
[2018-12-11] MEDS: Enoxaparin 40 MG/0.4 ML Syringe SC (06:18)
[2018-12-11 07:53] VITALS: PULSE 84; RESP 24; O2SAT 94
[2018-12-11] MEDS: Budesonide Respules 0.5 MG/2 ML AMPUL.NEB. INHALATION (07:53)
[2018-12-11] MEDS: Albuterol 2.5 MG/3 ML VIAL.NEB. INHALATION (07:54)
--- NOTE | 2018-12-11 08:48 | CPS ---
pt is agitated, confused, would not keep aerosol on, repeatedly taking mask off.
[2018-12-11 10:08] VITALS: BP 128/85; PULSE 78; RESP 16; TEMP 36.9; O2SAT 96
[2018-12-11] MEDS: Donepezil HCl 10 MG Tablet PO (10:20)
[2018-12-11] MEDS: DULoxetine Hcl 30 MG Capsule PO (10:22)
[2018-12-11] MEDS: Erythromycin Base 1 OPTH.TUBE 1 APPLIC EACH EYE ×2 (10:22→15:26)
[2018-12-11] MEDS: Losartan Potassium 25 MG Tablet PO (10:22)
[2018-12-11] MEDS: Calcium Carbonate 500 MG Tablet PO (10:23)
[2018-12-11] MEDS: Memantine Hydrochloride 10 MG Tablet PO (10:23)
[2018-12-11] MEDS: levETIRAcetam 500 MG Tablet PO (10:23)
[2018-12-11] MEDS: Clopidogrel Bisulfate 75 MG Tablet PO (10:23)
--- NOTE | 2018-12-11 11:11 | CASEMGMT ---
Social Work Note AILYN faxed updated clinicals to [facility]. AILYN spoke with Callie at [facility] [place] who states she will check on pt's pre-cert. Plan: [facility] pending pre-cert Hannah Lam GEAR TECHNICIAN, CARBURETOR REPAIRER
--- NOTE | 2018-12-11 12:04 | PN_ITS ---
Patient Problems: Active and Suspected Problems Closed fracture of right proximal humerus (Acute) Subjective: cc Patient is a 63-year-old gentleman with multiple comorbidities admitted following acute traumatic nondisplaced proximal right humeral fracture Objective: GENERAL: Patient does not appear to be in any distress HEENT: Atraumatic; moist oral mucosa EYES; Anicteric, Normal Conjunctiva NECK; supple, normal thyroid, RESPIRATORY: Diminished to auscultation CARDIOVASCULAR: Regular S1 S2, s GI: soft, non-tender, normoactive bowel sounds, : No Renal angle tenderness; EXTREMITIES: No edema, no clubbing, MUSCULOSKELETAL: Right upper extremity immobilized in a sling NEURO: Awake; no lateralizing signs. SKIN: No Rash PSYCH; flat affect Vitals/I&O's: Vital Signs Temp Pulse Resp BP Pulse Ox 98.5 F 78 16 128/85 H 96 12/11/18 10:08 12/11/18 10:08 12/11/18 10:08 12/11/18 10:08 12/11/18 10:08 Oxygen Flow Rate (L/min) 1 Oxygen Delivery Method Room Air Weight: 85.6 kg Body Mass Index (BMI) 32.3 Finger Stick Blood Glucose 122 Intake and Output for Last 24 Hours 12/09/18 12/10/18 12/11/18 23:59 23:59 23:59 Intake Total 340 / 460 1180 / 1180 Balance 340 / 460 1180 / 1180 Current Medications Acetaminophen (Tylenol) 650 mg PO Q6H PRN PRN PRN Reason: Non-cardiac pain (mod-severe) Last Admin: 12/10/18 22:01 Dose: 650 mg Documented by: Al Hydroxide/Mg Hydroxide (Mylanta Ii) 15 - 30 ml PO Q4H PRN PRN PRN Reason: INDIGESTION Albuterol Sulfate (Ventolin Aerosols) 2.5 mg INHALATION Q2H PRN PRN PRN Reason: dyspnea, wheezing Last Admin: 11/30/18 15:00 Dose: 2.5 mg Documented by: Albuterol Sulfate (Ventolin Aerosols) 2.5 mg INHALATION Q6HWA.RT [facility] [place] Last Admin: 12/11/18 07:54 Dose: 2.5 mg Documented by: Budesonide (Pulmicort Aerosol) 0.5 mg INHALATION Q12H.RT [facility] [place] Last Admin: 12/11/18 07:53 Dose: 0.5 mg Documented by: Calcium Carbonate (Tums) 500 mg PO DAILY [facility] [place] Last Admin: 12/11/18 10:23 Dose: 500 mg Documented by: Citalopram Hydrobromide (Celexa) 20 mg PO QHS [facility] [place] Last Admin: 12/10/18 22:01 Dose: 20 mg Documented by: Clopidogrel Bisulfate (Plavix) 75 mg PO DAILY [facility] [place] Last Admin: 12/11/18 10:23 Dose: 75 mg Documented by: Donepezil HCl (Aricept) 10 mg PO DAILY [facility] Last Admin: 12/11/18 10:20 Dose: 10 mg Documented by: Duloxetine HCl (Cymbalta) 30 mg PO BID [facility] [place] Last Admin: 12/11/18 10:22 Dose: 30 mg Documented by: Enoxaparin Sodium (Lovenox) 40 mg SC DAILY@0600 [facility] [place] Last Admin: 12/11/18 06:18 Dose: 40 mg Documented by: Erythromycin () 1 applic EACH EYE 4X/DAY [facility] [place] Last Admin: 12/11/18 10:22 Dose: 1 applicatio Documented by: Hydralazine HCl (Apresoline Iv) 10 mg IV Q4H PRN PRN PRN Reason: SBP > 160 Levetiracetam (Keppra Tablet) 500 mg PO BID [facility] [place] Last Admin: 12/11/18 10:23 Dose: 500 mg Documented by: Losartan Potassium (Cozaar) 25 mg PO DAILY [facility] [place] Last Admin: 12/11/18 10:22 Dose: 25 mg Documented by: Magnesium Hydroxide (Milk Of Magnesia) 30 ml PO DAILY PRN PRN Reason: Constipation Memantine (Namenda) 10 mg PO BID [facility] Last Admin: 12/11/18 10:23 Dose: 10 mg Documented by: Nitroglycerin (Nitrostat) 0.4 mg SUBLINGUAL Q5M PRN PRN Reason: CARDIAC/CHEST PAIN Olanzapine (Zyprexa) 10 mg PO QHS [facility] Last Admin: 12/10/18 22:01 Dose: 10 mg Documented by: Ondansetron HCl (Zofran) 4 mg IV Q8H PRN PRN PRN Reason: NAUSEA/VOMITING Oxycodone HCl (Oxyir) 5 mg PO Q6H PRN PRN PRN Reason: SEVERE PAIN (6-10/10) Last Admin: 12/07/18 20:19 Dose: 5 mg Documented by: Promethazine HCl (Phenergan Oral Solution (6.25 Mg/5 Ml)) 12.5 mg PO Q6H PRN PRN PRN Reason: COUGH Psyllium Hydrophilic Mucilloid (Metamucil) 1 packet PO DAILY PRN PRN PRN Reason: Constipation Senna/Docusate Sodium (Senokot-S, Kristina-Colace) 2 tablet PO BID PRN PRN PRN Reason: Constipation Last Admin: 12/10/18 22:49 Dose: 2 tablet Documented by: Sodium Chloride () 10 - 40 ml IV UD PRN PRN Reason: SALINE FLUSH Last Admin: 12/05/18 06:12 Dose: 10 ml Documented by: Medical Necessity - Tobacco Use Smoking Status: Former smoker Tobacco Use: Secondhand Assessment/Plan All Active Problems Closed fracture of right proximal humerus (Acute) Patient is a 63-year-old gentleman with multiple comorbidities admitted following acute traumatic nondisplaced proximal right humeral fracture 1. Acute mechanical fall with subsequent acute traumatic nondisplaced fracture involving the surgical neck of the right humerus ~Patient was seen in consultation by orthopedic surgery recommended conservative management at this point. Patient right upper extremity subsequently immobilized with plans for patient to be transferred to intermediate facility pending insurance precertification 2. Adult failure to thrive with frequent falls ~ Patient has underlying dementia requested for PT OT eval and social service assistant to assist with discharge planning 3. Dementia with behavioral area disturbance ~ Patient is on Aricept and Namenda did continue. Patient was previously agitated and appears to have calmed down subsequently 4. Bipolar disorder ~patient is on Zyprexa. Well-controlled 5. . Depression with anxiety ~patient is on Celexa and Cymbalta continued 6. Seizure disorder Symptoms controlled with Keppra 7. Essential hypertension ~Patient is on losartan blood pressure controlled was also placed on PRN hydralazine 8. History of previous CVA with no residual effects ~ patient is currently on Plavix did continue 9. COPD without acute exacerbation ~patient is on Pulmicort twice a day did continue in addition to PRN albuterol 10. DVT prophylaxis SC Lovenox Code Visit OBSV E&M: 75619 Subsequent observation care L2
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
[2018-12-11 15:52] VITALS: BP 139/89; PULSE 94; RESP 16; TEMP 36.8; O2SAT 96
--- NOTE | 2018-12-11 16:06 | PCM.TXEXTCAR ---
- Diet 11/28/18 19:42 Diet: Cardiac/Low Cholesterol Food consistency:: Regular Liquid Consistency:: Regular/Thin - Routine Orders/Code Status Code Status: Full Code - Wound(s) Rt forehead Wound Type: Abrasion - Suggestions for Active Care Change Position every (hours): 3 Hours to sit in a chair: 2 Times a day to sit in chair: 3 - Therapies Weight Bearing: Weight bearing as tolerated Physical Therapy: Eval and Treat Occupational Therapy: Eval and Treat - Allergies/Procedures Done in Hospital Allergies/Adverse Reactions: Allergies venom-honey bee [bee venom (honey bee)] Allergy (Verified 11/28/18 16:04) Anaphylaxis - Type of Care/Length of Stay Estimated LOS: Convalescent Care Less Than 30 days Type of Care Needed: Skilled Rehab Potential: Fair Prognosis: Fair - Additional Orders/Day of Discharge H&P will serve as current which was dated: 11/28/18 Day of Discharge: 12/11/18 - Dietary and Speech Recommendations Dietitian Recommendations/Changes: Please reweigh as able. - Follow Up Care Primary Care Physician: Emerson Jara MD [Primary Care Provider] - Please follow up with your Primary Care Physician in: 1-2 weeks. Please Follow Up With: Juancarlos Acosta DO When: 10-14 days
--- NOTE | 2018-12-11 16:08 | PCM.DC.SUM ---
Discharge Date and Diagnosis - Problem List Patient Problems: Active and Suspected Problems Closed fracture of right proximal humerus (Acute) Date of Admission: 11/28/18 Date of Discharge: 12/11/18 - Primary Discharge Diagnosis Active and Suspected Problems Closed fracture of right proximal humerus (Acute) - Secondary Discharge Diagnosis Chronic Problems Dementia (Chronic) HTN (hypertension) (Chronic) COPD (chronic obstructive pulmonary disease) (Chronic) Obesity (BMI 30.0-34.9) (Chronic) Stroke (Chronic) Seizure (Chronic) Hospital Course and Treatment Imaging Results: Clinical Impression(s) from Imaging Studies Humerus X-Ray 12/05/18 09:00 IMPRESSION: Nondisplaced fracture of the surgical neck of the humerus. 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 Electronically Signed: Parveen Oliva, at 11:11 EDT , Service support , Operations: None Summary of Care Provided: Patient is a 63-year-old gentleman with multiple comorbidities admitted following acute traumatic nondisplaced proximal right humeral fracture 1. Acute mechanical fall with subsequent acute traumatic nondisplaced fracture involving the surgical neck of the right humerus ~Patient was seen in consultation by orthopedic surgery recommended conservative management at this point. Patient right upper extremity subsequently immobilized. He was transferred to longterm facility once insurance precertification was obtained. 2. Adult failure to thrive with frequent falls ~ Patient has underlying dementia requested for PT OT eval and social insurance adviser to assist with discharge planning 3. Dementia with behavioral area disturbance ~ Patient is on Aricept and Namenda did continue. Patient was previously agitated and appears to have calmed down subsequently 4. Bipolar disorder ~patient is on Zyprexa. Well-controlled 5. . Depression with anxiety ~patient is on Celexa and Cymbalta continued 6. Seizure disorder Symptoms controlled with Keppra 7. Essential hypertension ~Patient is on losartan blood pressure controlled was also placed on PRN hydralazine 8. History of previous CVA with no residual effects ~ patient is currently on Plavix did continue 9. COPD without acute exacerbation ~patient is on Pulmicort twice a day did continue in addition to PRN albuterol 10. DVT prophylaxis SC Lovenox Patient Problems: Active and Suspected Problems Closed fracture of right proximal humerus (Acute) - Physical Exam General: No apparent distress Neck: Supple Lungs: Diminished Vital Signs Temp Pulse Resp BP Pulse Ox 98.2 F 94 16 139/89 H 96 12/11/18 15:52 12/11/18 15:52 12/11/18 15:52 12/11/18 15:52 12/11/18 15:52 Oxygen Flow Rate (L/min) 1 Oxygen Delivery Method Room Air Weight: 85.6 kg Body Mass Index (BMI) 32.3 Finger Stick Blood Glucose 122 Intake and Output for Last 24 Hours 12/09/18 12/10/18 12/11/18 23:59 23:59 23:59 Intake Total 340 / 460 1180 / 1180 Balance 340 / 460 1180 / 1180 Discharge Diet: No Restrictions Home Medications: Medications to take at Discharge Calcium Carbonate 600 mg PO DAILY 07/12/18 Clopidogrel Bisulfate [Plavix] 75 mg PO DAILY 07/12/18 Donepezil HCl [Aricept] 10 mg PO DAILY 07/12/18 Duloxetine HCl 30 mg PO BID 07/12/18 Levetiracetam 500 mg PO BID 07/12/18 Losartan Potassium 25 mg PO DAILY 07/12/18 Memantine HCl 10 mg PO BID 07/12/18 Mometasone/Formoterol [Dulera 200 Mcg/5 Mcg Inhaler] 2 puff IH BID 07/12/18 Ziprasidone HCl 20 mg PO DINNER 07/12/18 Promethazine HCl 6.25 - 12.5 mg PO Q6H PRN PRN 11/28/18 Albuterol Inhaler [Ventolin Hfa] 1 - 2 puff INHALATION Q4H PRN PRN 11/29/18 Citalopram [Celexa] 20 mg PO QHS 11/29/18 Olanzapine 10 mg PO QHS 11/29/18 Hydrocodone/Acetaminophen [Hydrocodone-Acetamin 5-325 mg] 1 tab PO Q6H PRN PRN 4 Days #14 tab 12/05/18 Magnesium Hydroxide [Milk Of Magnesia] 30 ml PO DAILY PRN #1 udc 12/05/18 Senna/Docusate Sodium [Senokot-S] 2 tab PO BID PRN PRN #1 tab 12/05/18 Following Prescrptions Were Given to Patient: Hydrocodone/Acetaminophen [Hydrocodone-Acetamin 5-325 mg] 1 tab PO Q6H PRN PRN 4 Days #14 tab PRN Reason: Severe Pain (-12/28) Prescription Printed Magnesium Hydroxide [Milk Of Magnesia] 30 ml PO DAILY PRN #1 udc PRN Reason: Constipation Senna/Docusate Sodium [Senokot-S] 2 tab PO BID PRN PRN #1 tab PRN Reason: Constipation Primary Care Physician: Emerson Jara MD [Primary Care Provider] - Please follow up with your Primary Care Physician in: 1-2 weeks. Please Follow Up With: Juancarlos Acosta DO When: 10-14 days Disposition: Home Minutes spent on discharge:: 45 Patient Condition:: Stable Medical Necessity - Tobacco Use Smoking Status: Former smoker Tobacco Use: Secondhand Meaningful Use Info Meaningful Use Diagnoses (Choose all that apply): None applicable Code Visit Inpatient E&M: 71558 Disch Hosp
--- NOTE | 2018-12-11 18:48 | NURSING ---
TRANSPORTED VIA [facility].
== END 2018-12-11 18:45 | disposition skilled nursing facility (03) ==
LOC: ED 18:59 → MS3 19:29
PROVIDERS: Student in an Organized Health Care Education/Training Program; Admitting Provider Family Medicine; Emergency Provider Emergency Medicine; Family Provider Family Medicine; PCP Family Medicine; Visit Provider Internal Medicine
DX: S42.201A Unspecified fracture of upper end of right humerus, initial encounter for closed fracture (principal); W19.XXXD Unspecified fall, subsequent encounter; J44.9 Chronic obstructive pulmonary disease, unspecified; I10 Essential (primary) hypertension; E66.9 Obesity, unspecified; F41.9 Anxiety disorder, unspecified; F31.9 Bipolar disorder, unspecified; G40.909 Epilepsy, unspecified, not intractable, without status epilepticus; F03.91 Unspecified dementia, unspecified severity, with behavioral disturbance; I25.10 Atherosclerotic heart disease of native coronary artery without angina pectoris; G92 Toxic encephalopathy; T50.905A Adverse effect of unspecified drugs, medicaments and biological substances, initial encounter; R29.6 Repeated falls; R62.7 Adult failure to thrive; Z68.32 Body mass index [BMI] 32.0-32.9, adult; Z71.3 Dietary counseling and surveillance; Z86.73 Personal history of transient ischemic attack (TIA), and cerebral infarction without residual deficits; Z79.899 Other long term (current) drug therapy; Z87.891 Personal history of nicotine dependence
CPT/HCPCS: 36415; 36600; 73060; 80048; 80053; 82803; 82962; 83735; 84100; 85025; 94640; 94762; 96360; 96361; 96372; 97110; 97116; 97162; 97166; 97530; 97535; 97802; 99218; 99283; J7030; A4216; G0378

== ENCOUNTER 2019-01-21 22:01 | Emergency (ER) | payer MEDICAID, SELFPAY ==
[2019-01-21 22:03] VITALS: BP 145/104; PULSE 96; RESP 16; TEMP 36.8; O2SAT 97; BMI 34.3
--- NOTE | 2019-01-21 22:13 | RAD_ITS ---
STUDY: X-RAY CHEST REASON FOR EXAM: Male, 63 years old. Cough, confusion TECHNIQUE: Single AP portable view of the chest. COMPARISON: 07/12/2018 FINDINGS: EKG leads overlie the chest The lungs are clear and expanded. There is no demonstrated pleural abnormality. Sternal cerclage wires and vascular clips are present from a prior sternotomy and coronary artery bypass graft procedure (CABG). Normal mediastinum and juan. Normal visualized pulmonary arteries. Normal visualized aortic arch and descending thoracic aorta. Normal visualized thoracic spine. Normal visualized ribs, clavicles, and shoulders. There is no demonstrated abnormality of the visualized soft tissue structures of the upper abdomen. RAD/Chest 1 View (Portable) IMPRESSION: No acute pulmonary process Electronically Signed: Alfonso Carroll MD at 22:31 EST , Service support ,
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
[2019-01-21 23:27] LABS: Absolute Lymphocyte Count 0.89 X10^3/uL (0.83-4.51); Absolute Neutrophil Count 6.2 X10^3/uL (2.0-7.7); Basophil# 0.01 X10^3/uL; Basophil% 0.1 % (0-1); Eosinophils% 2.5 % (0-5); Hematocrit 36.4 % (40-54); Hemoglobin 11.6 g/dL (13.0-16.5); Lymphocyte # 0.89 X10^3/ul (4.0); Mean Corp Hgb Conc 31.9 g/dL (32-36); Mean Corpuscular Hgb 28.6 pg (27.0-32.0); Mean Corpuscular Volume 89.7 fL (80-94); Mean Platelet Vol. 10.4 fl (6.2-12.0); Monocyte# 0.78 X10^3/uL; Monocyte% 9.6 % (0-10); NRBC Flagged by Analyzer 0 % (0-5); Neutrophil % 76.4 % (47-70); Platelet Count 286 K/mm3 (150-450); RBC Distribution Width CV 13.7 % (11.6-14.6); RBC Distribution Width SD 45.1 fl (35.1-43.9); Red Blood Count 4.06 M/mm3 (4.6-6.2); White Blood Count 8.1 K/mm3 (4.4-11.0)
[2019-01-21 23:31] LABS: Bacteria 0 SEEN /hpf (None Seen); Mucous, Urine 0 SEEN /hpf (<or=2+); Red Blood Cells-Urine 0 SEEN /hpf (0-5); Squamous Epithelial Cells - UA 0 SEEN /hpf (0-5); White Blood Cells 0 SEEN /hpf (0-5)
[2019-01-21 23:35] LABS: Anion Gap 6 (5-15); BUN 19 mg/dL (7-18); BUN/Creat Ratio 24.5 RATIO (10-20); Calcium,Total 8.4 mg/dL (8.5-10.1); Chloride 106 mmol/L (98-107); Creatinine, Serum 0.78 mg/dL (0.70-1.30); EST Glomerular Filtration Rate 107 mL/min (>60); Est Glom Filt Rate - Afr Amer 129 mL/min (>60); Estimated Creatinine Clearance 79.06 ml/min; Glucose 100 mg/dL (74-106); Potassium 4.2 mmol/L (3.5-5.1); Sodium Level 142 mmol/L (136-145)
[2019-01-21] MEDS: Ziprasidone IM 20 MG/ML VIAL 10 MG IM (23:37)
[2019-01-21 23:42] LABS: Color, Urine Yellow (Yellow); Glucose, Dipstick Normal (Normal); Ketone-Dipstick Negative (Negative); Leukocyte Esterase-Dipstick Negative /ul (Negative); Nitrite-Dipstick Negative (Negative); Occult Blood-Urine Negative /ul (Negative); Protein-Dipstick Negative (Negative); Urine Bilirubin Dipstick Negative (Negative); Urine Clarity Clear (Clear); Urine Urobilinogen Normal (Normal)
[2019-01-22 00:03] VITALS: RESP 20
[2019-01-22 03:12] VITALS: BP 145/88; PULSE 97; RESP 18; TEMP 36.2; O2SAT 95
[2019-01-22 05:59] VITALS: BP 120/52; PULSE 82; RESP 20; TEMP 35.8; O2SAT 95
--- NOTE | 2019-01-22 09:04 | ED.RN ---
clarence Green called with information ab out prior psych admits for pt. She states pt is followed by Dr Amado at [facility]. She says he should be able to accept pt and then readmit to [facility]. I called crisis, spoke with Jaimee and passed on information.
--- NOTE | 2019-01-22 09:10 | ED.RN ---
pt insists on leaving room. multiple attempts to redirect.pt given breakfast and allowed up in chair. pt begins to put shoes on. this rn and archives specialist redirected pt again and removed shoes and shirt from room. pt sitting in chair at this time
[2019-01-22 10:14] VITALS: BP 128/66; PULSE 78; RESP 18; O2SAT 97
--- NOTE | 2019-01-22 10:36 | NURSING ---
, CRISIS, CALLED. HE IS STILL WORKING ON OHP FOR PATIENT. WAITING ON SOME THINGS FROM [facility].
--- NOTE | 2019-01-22 12:50 | CM.ED ---
SOCIAL WORK CALL TO CRISIS, SPOKE WITH . UPDATED BY STILL WORKING ON PLACEMENT TO OHP. THIS WORKER UPDATED PATIENT AND FAMILY IN ROOM. BROTHER STATING DOES NOT WANT PATIENT TO GO TO [facility] IT IS TO FAR FOR HIM TO DRIVE TO PICK PATIENT UP AT DISCHARGE. BROTHER STATES PLANNED ON TAKING PATIENT OUT OF RETIREMENT THIS DAY AND INSTEAD GOT HIMSELF IN TROUBLE AND ENDED UP HERE. EDUCATION AND SUPPORT PROVIDED. BROTHER REMAINS ANGRY AT SITUATION WITH PINK SLIP AND STATES I'LL DANIEL THIS HOSPITAL AND CRISIS. DIESEL MECHANIC APPRENTICE, UPDATED ON THE ABOVE. James NGUYEN, FINANCIAL ANALYSIS ADVISOR, CABLE SWAGER.
--- NOTE | 2019-01-22 13:06 | ED.RN ---
pt family arrives. brother very angry stating that he wants to take the patient home. states he will mildred this hospital if pt gets sen away to a facility. this rn attempted to talk with family. rich from oncology social work involved. she talked with crises and family updated on plan. plan remains to transfer pt
--- NOTE | 2019-01-22 13:33 | ED.RN ---
PT FAMILY LEFT NUMBER FOR FURTHER USE [phone] RIP DAVID [facility]
[2019-01-22 13:36] VITALS: BP 140/84; PULSE 88; RESP 20; O2SAT 96
--- NOTE | 2019-01-22 13:42 | ED.RN ---
pt family leaves at this time. pt insists he is leaving
--- NOTE | 2019-01-22 14:02 | ED.RN ---
pt remains in the doorway. continuously asking for his shoes. pt states i am walking out, shoes or no shoes. pt reminded he is pink slipped. pt becomes verbally angry at this comment. pt does redirect with continuing communication/encouragement
--- NOTE | 2019-01-22 14:26 | NURSING ---
, CRISIS, HERE FOR PATIENT
--- NOTE | 2019-01-22 15:02 | ED.RN ---
[facility] on unit. they did not update this rn as to plans for pt. talked with dr dos santos. plan to let pt pt medications go home with his brother. states waiting to hear from counseling center that all pt medications are available at brothers house and care can continue
--- NOTE | 2019-01-22 16:16 | ED.DCSUM_ITS ---
- ER Visit Summary Date of Service: 01/22/19 Chief Complaint: Behavioral issues, aggressive behavior History of Present Illness: The patient is a 63 M [] Physical Examination: [] Test Results: [] Emergency Department Course and Treatment: Patient is initially evaluated for increased aggression and noncompliance has senior care. He is medically cleared. He is evaluated by crisis who states that he will require [facility] if he is not able to go back to his senior care. Patient signed out to me pending placement. Patient's brother who is his medical power of application development director was contacted who states that the plan was to discharge patient home today from the nursing facility into the care of his brother. Brother is comfortable taking him home. Patient has not displayed any homicidal or suicidal behavior. I do think patient needs significant assistance at home but brother seems to be comfortable with this and patient was living with his brother before. retirement will arrange prescriptions for all patient's medications. He has a follow- up appointment with his PCP in 3 days. Patient is given a short course of Ativan as they cannot transmit controlled substance. Patient and brother are agreeable to this plan. Patient is stable at time of disposition. While patient is in the ER during my shift he is quite redirectable and does not require any medication for sedation for his agitation. Treatment Plan: Discharge home to the care of his brother Disposition: Home Impression: Behavioral disturbance This note was generated with [employer] dictation software. It may contain incorrect words, spelling, and punctuation that were not noted in review of the chart prior to signing ED Disposition - Plan for ED Patient: Disposition: Home or Assisted Living Diagnosis: Agitation Prescriptions: Lorazepam [Ativan] 0.5 mg PO BID PRN PRN #10 tab PRN Reason: Anxiety Prescription Printed Referrals: Emerson Jara MD [Primary Care Provider] - Additional Instructions: The nursing facility should be sending the rest of his prescription to the pharmacy electronically. Return to the emergency room or there are further questions/concerns. Make sure you follow-up with his primary care doctor later this week as scheduled. Also follow-up with psychiatry.
--- NOTE | 2019-01-22 17:12 | ED.RN ---
talked with christel hdz bombay. all meds called in. pt dc'd home with brother
== END 2019-01-22 17:14 | disposition home or self-care (01) ==
PROVIDERS: Emergency Provider Emergency Medicine; Family Provider Family Medicine; PCP Family Medicine
DX: F03.91 Unspecified dementia, unspecified severity, with behavioral disturbance (principal); D64.9 Anemia, unspecified; Z91.19 Patient's noncompliance with other medical treatment and regimen; J44.9 Chronic obstructive pulmonary disease, unspecified; I10 Essential (primary) hypertension; G40.909 Epilepsy, unspecified, not intractable, without status epilepticus; Z86.73 Personal history of transient ischemic attack (TIA), and cerebral infarction without residual deficits; Z79.02 Long term (current) use of antithrombotics/antiplatelets; Z79.899 Other long term (current) drug therapy
CPT/HCPCS: 36415; 71045; 80048; 81001; 85025; 96372; 99285; J3486

== ENCOUNTER → 2019-01-24 14:49 | Outpatient (CLI) | payer MEDICAID, SELFPAY ==
[2019-01-21 22:03] VITALS: BMI 34.3
--- NOTE | 2019-01-24 14:54 | RAD_ITS ---
STUDY: X-RAY CHEST REASON FOR EXAM: Male, 63 years old. Rales posterior wall on the left. TECHNIQUE: PA and lateral views of the chest. COMPARISON: 01/21/2019. FINDINGS: The lungs are clear and expanded. There is no demonstrated pleural abnormality. There is borderline cardiomegaly. Midline sternotomy wires present. Normal mediastinum and juan. There is mild fullness of the central markings which may indicate mild vascular congestion. There is atherosclerotic calcification of the aortic arch with tortuosity. There are diffuse degenerative changes of the visualized thoracic spine. There is degenerative osteoarthritis of the bilateral shoulders. Surgical clips at the level of the upper abdomen noted on lateral projection. RAD/Chest PA and Lateral IMPRESSION: Possible mild vascular congestion, clinical correlation recommended. Otherwise no acute cardiopulmonary process seen. Electronically Signed: Vicky Domínguez MD at 2:51 EST , Service support ,
== END ==
PROVIDERS: Family Provider Family Medicine; PCP Family Medicine; Referring Provider Family Medicine; Visit Provider Family Medicine
DX: R09.89 Other specified symptoms and signs involving the circulatory and respiratory systems (principal)
CPT/HCPCS: 71046

== ENCOUNTER → 2019-02-05 09:52 | Outpatient (CLI) | payer MEDICAID, SELFPAY ==
[2019-01-21 22:03] VITALS: BMI 34.3
--- NOTE | 2019-02-05 10:42 | RAD_ITS ---
STUDY: X-RAY - ABDOMEN/PELVIS REASON FOR EXAM: Male, 63 years old. Constipation. TECHNIQUE: AP supine and upright views of the abdomen and pelvis. COMPARISON: None. FINDINGS: Normal visualized lung bases. There is a moderate amount of colonic fecal material. There is no demonstrated free abdominal air. Surgical clips are seen in the right upper quadrant in keeping with prior cholecystectomy. There are calcified phleboliths in the pelvis. Loss of height of the L1 vertebra. RAD/Abd Inc Decub and/or Erect IMPRESSION: Moderate amount of fecal material is seen in the colon. Electronically Signed: Parveen Baptiste, at 12:29 EST , Service support ,
== END ==
PROVIDERS: Family Provider Family Medicine; PCP Family Medicine; Referring Provider Family Medicine; Visit Provider Family Medicine
DX: N39.46 Mixed incontinence (principal)
CPT/HCPCS: 74019

== ENCOUNTER → 2019-02-14 16:54 | Outpatient (CLI) | payer MEDICAID, SELFPAY ==
[2019-01-21 22:03] VITALS: BMI 34.3
[2019-02-14 17:46] LABS: Absolute Lymphocyte Count 1.36 X10^3/uL (0.83-4.51); Absolute Neutrophil Count 5.6 X10^3/uL (2.0-7.7); Basophil# 0.01 X10^3/uL; Basophil% 0.1 % (0-1); Eosinophil# 0.27 X10^3/uL; Eosinophils% 3.4 % (0-5); Hematocrit 38.2 % (40-54); Hemoglobin 11.9 g/dL (13.0-16.5); Lymphocyte # 1.36 X10^3/ul (4.0); Lymphocyte % 17.3 % (19-41); Mean Corp Hgb Conc 31.2 g/dL (32-36); Mean Corpuscular Hgb 28.2 pg (27.0-32.0); Mean Corpuscular Volume 90.5 fL (80-94); Mean Platelet Vol. 10.6 fl (6.2-12.0); Monocyte% 7.6 % (0-10); NRBC Flagged by Analyzer 0 % (0-5); Neutrophil # 5.59 X10^3/uL (2.7-7.7); Neutrophil % 71.3 % (47-70); Platelet Count 387 K/mm3 (150-450); RBC Distribution Width CV 13.9 % (11.6-14.6); RBC Distribution Width SD 46.2 fl (35.1-43.9); Red Blood Count 4.22 M/mm3 (4.6-6.2); White Blood Count 7.9 K/mm3 (4.4-11.0)
[2019-02-14 17:57] LABS: Osmolality, Serum 286 mOsm/KG (280-301)
[2019-02-14 18:05] LABS: ALB/GLOB Ratio 0.7 RATIO (0.9-2.4); AST(SGOT) 9 U/L (15-37); Alanine Aminotransfer ALT/SGPT 15 U/L (16-61); Albumin, Serum 3.2 g/dL (3.2-5.0); Alkaline Phosphatase 120 U/L (45-117); Anion Gap 4 (5-15); BUN 10 mg/dL (7-18); BUN/Creat Ratio 12.2 RATIO (10-20); Calcium,Total 8.8 mg/dL (8.5-10.1); Chloride 104 mmol/L (98-107); Creatinine, Serum 0.82 mg/dL (0.70-1.30); EST Glomerular Filtration Rate 100 mL/min (>60); Est Glom Filt Rate - Afr Amer 121 mL/min (>60); Globulin 4.5 g/dL (2.2-4.2); Glucose 93 mg/dL (74-106); Potassium 3.7 mmol/L (3.5-5.1); Protein, Total 7.7 g/dL (6.4-8.2); Sodium Level 139 mmol/L (136-145)
[2019-02-14 18:41] LABS: Erythrocyte Sedimentation Rate 31 mm/hr (0-20)
== END ==
PROVIDERS: Family Provider Family Medicine; PCP Family Medicine; Referring Provider Family Medicine; Visit Provider Family Medicine
DX: R11.10 Vomiting, unspecified (principal)
CPT/HCPCS: 36415; 80053; 83930; 85025; 85652

== ENCOUNTER → 2019-04-26 16:51 | Outpatient (CLI) | payer MEDICAID, SELFPAY ==
--- NOTE | 2019-04-26 16:55 | RAD_ITS ---
STUDY: X-RAY CHEST REASON FOR EXAM: Male, 63 years old. Bronchitis TECHNIQUE: PA and lateral views of the chest. COMPARISON: 01/24/2019. FINDINGS: Median sternotomy wires and mediastinal clips are identified. Cardiac silhouette is enlarged. Pulmonary vascularity increased. Aorta unremarkable. No focal airspace opacities. No pleural effusions. Upper abdomen unremarkable. Osseous structures intact. No pneumothorax. RAD/Chest PA and Lateral IMPRESSION: Findings most consistent with CHF and pulmonary vascular congestion. No focal consolidation. Electronically Signed: Saleem Elaine, at 19:43 EST Tel , Service support ,
== END ==
PROVIDERS: Family Provider Family Medicine; PCP Family Medicine; Referring Provider Family Medicine; Visit Provider Family Medicine
DX: J06.9 Acute upper respiratory infection, unspecified (principal)
CPT/HCPCS: 71046

== ENCOUNTER → 2019-04-30 16:56 | Outpatient (CLI) | payer MEDICAID, SELFPAY ==
[2019-04-30 18:12] LABS: Absolute Lymphocyte Count 0.79 X10^3/uL (0.83-4.51); Absolute Neutrophil Count 13.5 X10^3/uL (2.0-7.7); Basophil# 0.03 X10^3/uL; Basophil% 0.2 % (0-1); Eosinophil# 0.01 X10^3/uL; Eosinophils% 0.1 % (0-5); Hematocrit 42.4 % (40-54); Hemoglobin 13.6 g/dL (13.0-16.5); Lymphocyte # 0.79 X10^3/ul (4.0); Lymphocyte % 5.2 % (19-41); Mean Corp Hgb Conc 32.1 g/dL (32-36); Mean Corpuscular Hgb 28.6 pg (27.0-32.0); Mean Corpuscular Volume 89.3 fL (80-94); Mean Platelet Vol. 11.5 fl (6.2-12.0); Monocyte# 0.85 X10^3/uL; Monocyte% 5.5 % (0-10); NRBC Flagged by Analyzer 0 % (0-5); Neutrophil # 13.54 X10^3/uL (2.7-7.7); Neutrophil % 88.3 % (47-70); Platelet Count 313 K/mm3 (150-450); RBC Distribution Width CV 14.8 % (11.6-14.6); RBC Distribution Width SD 47.8 fl (35.1-43.9); Red Blood Count 4.75 M/mm3 (4.6-6.2); White Blood Count 15.3 K/mm3 (4.4-11.0)
[2019-04-30 18:48] LABS: BNP,B-Type NATRIURETIC PEPTIDE 1129.9 pg/mL (0-100)
[2019-04-30 19:02] LABS: ALB/GLOB Ratio 0.7 RATIO (0.9-2.4); AST(SGOT) 37 U/L (15-37); Alanine Aminotransfer ALT/SGPT 65 U/L (16-61); Albumin, Serum 3.2 g/dL (3.2-5.0); Alkaline Phosphatase 109 U/L (45-117); Anion Gap 6 (5-15); BUN 27 mg/dL (7-18); Calcium,Total 9.1 mg/dL (8.5-10.1); Chloride 105 mmol/L (98-107); Creatinine, Serum 0.79 mg/dL (0.70-1.30); EST Glomerular Filtration Rate 104 mL/min (>60); Est Glom Filt Rate - Afr Amer 126 mL/min (>60); Globulin 4.9 g/dL (2.2-4.2); Glucose 131 mg/dL (74-106); Potassium 3.1 mmol/L (3.5-5.1); Protein, Total 8.1 g/dL (6.4-8.2); Sodium Level 139 mmol/L (136-145)
== END ==
PROVIDERS: PCP Family Medicine; Referring Provider Family Medicine; Visit Provider Family Medicine
DX: I50.9 Heart failure, unspecified (principal)
CPT/HCPCS: 36415; 80053; 83880; 85025; 86141